=== PATIENT | female | born 1955 | race Caucasian/White ===

== ENCOUNTER → 2020-03-15 09:53 | Outpatient (BNVA) | payer OTHER, SELFPAY | PROVIDERS: PCP Internal Medicine; Visit Provider Hospitalist ==

== ENCOUNTER → 2021-10-16 08:58 | Outpatient (BNVA) | payer OTHER, SELFPAY | PROVIDERS: PCP Nurse Practitioner Gerontology; Visit Provider Hospitalist | DX: R94.31 Abnormal electrocardiogram [ECG] [EKG] (principal); R91.8 Other nonspecific abnormal finding of lung field; R06.00 Dyspnea, unspecified; J44.9 Chronic obstructive pulmonary disease, unspecified; D86.9 Sarcoidosis, unspecified; J45.909 Unspecified asthma, uncomplicated; Z79.899 Other long term (current) drug therapy | CPT/HCPCS: 93005 ==

== ENCOUNTER → 2022-03-13 11:01 | Outpatient (BNVA) | payer OTHER, SELFPAY | PROVIDERS: PCP Nurse Practitioner Gerontology; Visit Provider Hospitalist | DX: R94.31 Abnormal electrocardiogram [ECG] [EKG] (principal); R91.8 Other nonspecific abnormal finding of lung field; R06.00 Dyspnea, unspecified ==

== ENCOUNTER → 2022-05-22 11:07 | Outpatient (BNVA) | payer OTHER, SELFPAY | PROVIDERS: PCP Nurse Practitioner Gerontology; Visit Provider Hospitalist | DX: R94.31 Abnormal electrocardiogram [ECG] [EKG] (principal); R91.8 Other nonspecific abnormal finding of lung field; R06.00 Dyspnea, unspecified ==

== ENCOUNTER → 2022-08-28 11:25 | Outpatient (BNVA) | payer OTHER, SELFPAY | PROVIDERS: PCP Nurse Practitioner Gerontology; Visit Provider Hospitalist | DX: J44.9 Chronic obstructive pulmonary disease, unspecified (principal); D86.9 Sarcoidosis, unspecified; R91.8 Other nonspecific abnormal finding of lung field; R06.00 Dyspnea, unspecified; U09.9 Post COVID-19 condition, unspecified; G47.33 Obstructive sleep apnea (adult) (pediatric); Z23 Encounter for immunization | CPT/HCPCS: 90471; 90677 ==

== ENCOUNTER 2022-09-11 09:41 | Outpatient (RCR) | payer OTHER, SELFPAY ==
[2022-09-11 10:10] VITALS: BP 102/58; PULSE 58
--- NOTE | 2022-09-11 11:46 | MHC.PR.IN ---
[address] [phone] F: [phone] Pulmonary Rehabilitation Individual Treatment Plan Iris Millan is a 67 year old (F) who was referred to the Pulmonary Rehabilitation program by Campbell Amaya. This patient who has a primary diagnosis of Sarcoidosis will begin pulmonary rehabilitation with monitored exercise and education to optimize both physical and social performance, autonomy, increase strength and endurance, and control dypsnea. The following information was gathered from the patient: Smoking History Current smoking status: Never Smoked Years smoked: Last time smoked: Quit Date: Assistance with quitting needed: Past Medical History Medical History: Cardiac Disorders Hypertension Asthma Pneumonia Bronchitis Diabetes Mellitus Depression Anxiety Surgeries: Past Pulmonary Hospitalizations # of hospitalizations in the past year: N/A # of ER vists due to breathing troubles in the past year: N/A Current Pulmonary Medications Synthoid .5mg daily Pravistatin 40mg daily Ambien 10mg daily Cymbalta 20mg daily Clonazopan .75mg daily atrovent rescue PRN Propranolol 30 mg daily Norvasc 7.5 mg daily protonix 40 mg dialy metformin 500mg daily Allergy History Allergies: Demerol Current Oxygen Use Supplemental Oxygen Device Used: Liter flow: How often: N/A Pulmonary History Cough: Yes Sputum: No: Dry cough Sleep device: Other pulmonary devices: Peak flow meter: Yes: Pt taught peek flow Nebulizer: Yes: xopenex Suction: No Ventilator: No Secretion clearance: PEP: Influenza vaccine: Yes Pneumonia vaccine: Yes Patient Questionaire Scores MRC Dyspnea Scale (mRC): 2 CAT Score: PHQ-9 Score: 5 Pulmonary Function Test and Vital Signs Pulmonary Function Test Date of PFT FVC Actual % FVC Predicted % FEV1 Actual % FEV1 Predicted % FEV1/FVC Actual % FEV1/FVC Predicted % DLCO Vital Signs Heart Rate 58 Blood Pressure 102/58 SpO2 97% Respiratory Rate 16-18 shallow breaths Six Minute Walk Test Supplemental Oxygen O2 L/min: RA FiO2: Resting Vitals SpO2: 97% BP: 102/58mmHg HR: 68 bpm Total Distance 1,320 Number/ Time of Rests (sec) 0 JIMMY 3 METS 2.74 SpO2 95 HR (bpm) 84 MPH 2.54 Meters/Minute 396 Post-walk Vitals SpO2: 95 BP: 98/68 HR: 84 Performance Observations Pt walked walked a moderate pace, unassisted for 6 minutes. Pt denies any dizziness/pain/fatigue. RPD 3 Pulmonary Rehabilitation Plan Topic Problem Goal Plan Comment Education Knowledge deficit of disease self management strategies Ineffective control of dyspnea Verbalize adequate disease self-management skills Effective control of dyspnea Disease overview Panic Control Pt educated on diaphragmatic breathing techniques and pursed lip breathing. Hypoxia N/A, no s/s of hypoxemia Pt oxygenation is sufficient at this time. Psychosocial Panic Verbalizes improved psychosocial coping strategies & mechanisms Benefits of exercise Coping techniques On medications currently Pt states her anxiety and depression is minimal at this time. Uses current medications appropriately. Will focus on techniques coping with panic when she becomes short of breath. Activities of Daily Living Fear of severe dyspnea ADL management and control of dyspnea ADL performance with pacing and pursed lip breathing Educate on pursed lip breathing and pacing with stairs and activity Pt will receive continuous education and coaching on respiratory medication use. Spacer teaching/use, and breathing techniques. Nutrition & Weight Management Overweight Lose weight during program Education classes Education re ongoing weight monitoring Pt education on Dash diet. Handouts given, recipes , monitoring portion control Tobacco Managment NA Pt has never smoked Medication N/A, pt reports compliance w/ prescribed medications Adherence to prescribed medications Importance of medication compliance Medications purpose Prescribed medications Pt does not use symbicort at this time due to frequent issues with thrush. Pt instructed to gargle with peroxide after use, and will try again. Goal is to progress towards using maintenance inhaler 100% Inhaled Medication Purpose, side effects and technique needs review Correct technique/timing and care of inhaled medications Demo of MDI with spacer device MDI with spacer device Nebulizer Spacer given with teaching. Ongoing teaching with demonstration throughout program. Secretion Management N/A, pt able to self manage secretions Patient demonstrates effective cough and airway clearance Patient demonstrates effective cough and airway clearance PT has persistent dry cough. States her cough is not productive, but dry due to swelling of upper airways. Exercise & Fitness Pulmonary Rehab 2-3x/week Weight or resistance training 2-3x/week Aerobic Exercise: 30-60mins x 9 weeks Review how to measure and monitor dyspnea level Review exercise safety guidelines Review frequency and duration of exercise JIMMY RPD 3-4/10 PT currently does weight training 2X weekly at outside gym with a vocational trainer. Our focus will be aerobic exercise, to work on breathing and habits during periods of SOB UBE L1.3 5 min RPD 2 mets 2.3 Recumbent bike L1.0/P19 RPD 1 mets 2.0 Treadmill L2.5 Grade 1 RPD 3 Diabetes Management Does patient have DM?: Yes Diabetes Type: Current Blood Glucose Level: Current A1C Level: Self Check: Yes Patient's Goals and Concerns Her biggest goal is to learn breathing techniques and breath through exercise. PT states she tends to breath shallow breaths and when sob she will start to panic and experience lightheadedness.. Appraisal Specialist Review I have reviewed the outcome assessment, treatment plan, goals, and problem list. The treatment plan and goals support the patient's needs and abilities, and thereby recommend that the exercise plan be completed as documented. Special precautions or modifications to the treatment plan include:
[2022-09-17 11:30] VITALS: BP 112/62; BP 128/70
--- NOTE | 2022-10-09 10:10 | MHC.PR.DC ---
[address] [phone] F: [phone] Pulmonary Rehabilitation Discharge Iris Millan is a 67 year old (F) who was referred to the Pulmonary Rehabilitation program by Campbell Amaya. This patient who has a primary diagnosis of Sarcoidosis has completed 2 sessions of the pulmonary rehabilitation program with monitored exercise and education to optimize both physical and social performance, autonomy, increase strength and endurance, and control dypsnea. They were evaluated on . Discharge summary and tests are below. Initial MRC Score: 2 Discharge MRC Score: Six Minute Walk Test Initial 6MWT Discharge 6MWT Supplemental Oxygen O2 L/min: RA FiO2: O2 L/min: FiO2: Resting Vitals SpO2: 97% BP: 102/58mmHg HR: 68 bpm SpO2: % BP: mmHg HR: bpm Total Distance (ft) 1,320 Number/ Time of Rests (sec) 0 JIMMY 3 Walk Vitals SpO2: 95 HR: 84 SpO2: HR: Post-Walk Vitals SpO2: 95 BP: 98/68 HR: 84 SpO2: BP: HR: Performance Observations Pt walked walked a moderate pace, unassisted for 6 minutes. Pt denies any dizziness/pain/fatigue. RPD 3 Cannot complete. Pt is not interested in rehab at this time. She exercises at home. Exercise Assessment on : Pre-exercise Post-exercise SpO2 Heart Rate JIMMY METS Exercise Assessment on : Pre-exercise Post-exercise SpO2 Heart Rate JIMMY METS Exercise Assessment on : Pre-exercise Post-exercise SpO2 Heart Rate JIMMY METS Topic Education/Progress Progress Comments Education Hypoxia Current oxygen Use: RA Psychosocial PHQ-9 Score: 5 Activities of Daily Living Nutrition and Weight Managment Current weight: 204 BMI: Weight change: Tobacco Stages of Change: Tobacco Use: Cigerettes/Day: Any nicotine replacement: Any cessation medication: Smoking quit date: Smokeless tobacco use and amount: Medications Inhaled Medications Patient verbalizes correct technique of: MDI: DPI: SMI: NEBULIZER: Secretion Management Patient provides adequate return demonstration of: Controlled cough: Thomas cough: Acapella/ PEP Device: CPT: Sputum management: Exercise and Fitness Aerobic Exercise Frequency: Target heart range: Heart rate range: SpO2 Range: JIMMY RPD: Time (minutes): O2 use with exercise: Current HEP: Discharge Assessment: Discharge Reason: PT is not interested in rehab at this time. Pt states she does exercise at home, and this facility is quite far. Other rehab facilities were discussed, but she is not interested. Discharge Recommendation: :
== END 2022-10-09 10:10 | disposition home or self-care (01) ==
LOC: HO.PR 09:41
PROVIDERS: PCP Nurse Practitioner Gerontology; Visit Provider Hospitalist
DX: J44.9 Chronic obstructive pulmonary disease, unspecified (principal); D86.9 Sarcoidosis, unspecified
CPT/HCPCS: 94625

== ENCOUNTER → 2022-10-08 14:23 | Outpatient (REF) | payer OTHER, SELFPAY | LOC: HO.SL 14:23 | PROVIDERS: PCP Nurse Practitioner Gerontology; Visit Provider Hospitalist | DX: D86.9 Sarcoidosis, unspecified (principal); J44.9 Chronic obstructive pulmonary disease, unspecified | CPT/HCPCS: 94010; 94727; 94729 ==

== ENCOUNTER 2022-11-04 13:37 | Outpatient (AMB) | payer OTHER, SELFPAY ==
--- NOTE | 2022-11-04 13:42 | MHC.OFFVIS ---
Intake Vital Signs 11/04/22 13:43 Height 5 ft 6 in Weight 199 lb BMI 32.1 Pulse 69 Pulse Source Pulse Oximeter Pulse Oximetry (%) 94 Oxygen Delivery Method Room Air Intake Visit Reasons: persistent cough and wheeze Market Research Specialist Required: No Allergies demerol Allergy (Unknown, Uncoded 11/04/22 13:44) hives duraprep Allergy (Unknown, Uncoded 11/04/22 13:44) /welts HPI HPI Comments History of Present Illness Details The patient is a 67 year woman with a known history of moderate persistent asthma, sarcoidosis and pulmonary nodules. The patient also has allergies and currently seen an stonemason apprentice. She was offered allergy shots but she does not want to start them at this time. She continues uses Symbicort 2 puffs twice a day. She also uses very her rescue inhaler. Unfortunately she has tried albuterol as a short-acting beta agonist cell resulting significant palpitations and tremors. For that reason we have switched her over to Xopenex HFA and also the nebulized solution that she has had to tolerate much better. She doesn't have any adverse effects when she uses Xopenex as opposed to the side effects that she gets some abuse or. Therefore we will resend her Xopenex to the pharmacy. The patient is not able to use albuterol. We did review her CT scan of the chest last done back in [address] [facility]. She does have multiple pulmonary nodules largest measuring 8 mm. She hasn't had imaging now in more than 2 years. The patient needs to have a CT scan to reassess nodular densities. We will do that at [facility] [place]. In addition to that we did review her blood work demonstrating elevated Paul level that may be a sign of active sarcoid. So therefore will recheck the level at this time. Otherwise the patient is without any other complaints 09/17/2019 the patient is here for pulmonary follow-up visit. Overall she is doing okay. She continues to Symbicort with good effect. Does not have any significant wheezing, although, she does have a dry cough. Moderate severity. She denies any significant shortness of breath. She does have the Xopenex nebulized solution but the HFA was not approved. She is concerned because she does not have a rescue inhaler available. I will send her Atrovent HFA inhaler as rescue. We also talked about her blood work demonstrating the elevated angiotensin converting enzyme level of 70. She has had this tested before and was always normal. Therefore, along with her pulmonary nodules lymphadenopathy and her previous CT scan and her ongoing symptoms will plan to repeat the CT scan at this time. 03/15/2020 the patient is here for pulmonary follow-up visit. She continues on her respiratory medications. Does have cough intermittently and also some shortness of breath. Pogi-mt-sjwlxmld severity. Does improve with respiratory medications. Again, we reviewed her CT scan of the chest from 2017 demonstrating pulmonary nodules. This point we need to repeat the CT scan to assess her symptoms in addition to assess the size of pulmonary nodules. 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 10/16/2021 the patient is here for pulmonary follow-up visit. She is describing worsening dyspnea on exertion. She has noticed did the last several weeks. 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 She has been doing well and tolerating her physical exercise well until recently. She started developing some heaviness and chest pressure sensations with activity as well as shortness of breath. Moderate severity. She has not been able to keep up with the same level of exercise. She does have a rescue inhaler she does use it with partial response. During the office visit we did have her undergo a 6 minute walk test. The patient's heart rate and pulse ox were within normal limits. However she did complaint of chest heaviness and pressure 5/10. Therefore we did do an EKG. She did have T-wave inversions in the inferior leads and also poor R-wave progression in the anterior septal leads. However we do not have a previous EKG to compare. She states that she did have an EKG at her primary care doctor's office. Will go ahead and fax over this reports that they can compare. In the meantime I will request a cardiology consultation and a referral will be made for urgent visit. In the meantime the patient is going to stop with exercise routine until she is evaluated by Cardiology. Will further maximize respiratory therapy by adding Symbicort. She can also try a small short course of prednisone to see if this also relieves her symptoms if for some reason is related to her asthma or sarcoid. The patient will also undergo blood work and chest x-ray and she can do that at [facility] [place] where she is employed. 01/08/2022 the patient is here for a pulmonary follow-up visit. She continues to complaint of dyspnea on exertion. Last week her symptoms became significantly worse. The patient did take some prednisone and she did have improvement of her symptoms. Now she has a lingering cough. The cough is nonproductive in nature. Is moderate severity. If the PICC please worsen at nighttime. She is currently not taking any medications for the cough. It is a little better today. Denies any wheezing or chest tightness. Denies any significant coughing. She did follow-up with cardiology. They noted the abnormal EKG. She had additional testing including no clear testing. now she is awaiting a left heart catheterization. The question of cardiac sarcoid did come up. At this time the patient will rule out any coronary artery disease. Also assess valvular disease. If the workup is negative then consider cardiac workup for cardiac sarcoidosis. Currently she continues use her respiratory therapy with partial response. 03/13/2022 the patient is here for a pulmonary follow-up visit. The patient has been getting worse in the last week. She is developing a croupy cough in along with shortness of breath and chest tightness. The patient did follow-up with cardiology her and had a full cardiac workup including cardiac catheterization. She was told that everything is fine from a cardiac workup and that most of her symptoms are pulmonary. In the meantime the patient developed this respiratory illness. Will go ahead and treated with antibiotics for what appears to be a bout of tracheobronchitis and will provide also with cough medication. If the patient is not better she will provide us with a sputum culture in order for further analyze the microbiology. I do believe that the patient will require repeat CT scan. Her last CT scan was bout two years ago demonstrating pulmonary nodules and along with airspace disease. The patient has a history sarcoidosis. Ultimately I do believe that to further address her cough appt bronchoscopy may be warranted to further address for endobronchial sarcoid also to assess her trachea for any evidence of tracheomalacia or any other etiologies for cough. 05/22/2022 the patient is here for pulmonary follow-up visit. She still complains of a cough. At this point the cough is nonproductive in nature. Although she does feel like she does have some chest congestion with difficult to expectorate. The coughing spells can be sporadic and be uncomfortable. Moderate severity. Her inhalers do not help. Her nebulizers more effective. Will try to minimize the use of prednisone. The patient does have chronic bronchitis with frequent exacerbations needing prednisone. Therefore she is a good candidate for Daliresp. Will go ahead and start a small dose of Daliresp and she is going to be mindful of her GI potential side effects. Hopeful that she can tolerated we can increase it to the therapeutic dose of 500 mcg. In the meantime okay and also provide her with hypertonic saline and an Acapella valve in order for her to be able to work on chest physical therapy. Again, if the patient continues to be symptomatic once the patient is able we can have her undergo bronchoscopy to further adjust the airways. The patient may have a component of sinus congestion. She should be using her nasal sprays and also consider nasal rinsing. The patient does have significant daytime drowsiness after having COVID. Likely chronic fatigue syndrome the patient unfortunately even after a full night's sleep still feels tired. Denies any symptoms or signs of obstructive sleep apnea. If the patient continues to be symptomatic with daytime drowsiness upon return and upon improvement of her chest physical therapy them with the consider using stimulants to try to improve her daytime wakefulness. 08/28/2022 the patient is here for a pulmonary follow-up visit. The patient still struggling with her breathing. Complains of significant dyspnea on exertion also daytime drowsiness. Her [place] score is elevated 12/24. She sleeps a lot during the daytime. The patient has not had any recent sleep studies. At this point based on her ongoing symptoms will go ahead and abscess. The patient also tried Daliresp to see if this would help with her breathing and exacerbations, but, her symptoms did not get any better and she had significant GI adverse effects to the point that she has to stop it immediately. The patient did not tolerate the therapy. The patient did have COVID in therefore long COVID is indeed in differential Peter for sleep study is negative we can consider stimulant therapy to help with her ongoing symptoms. The patient also has underlying sarcoidosis history and pulmonary nodules. Will plan to repeat the CT scan of the chest to assess her pulmonary nodules in view of her ongoing symptoms. The patient should also undergo pulmonary function studies and consider pulmonary rehabilitation. 11/04/2022 the patient is here for pulmonary follow-up visit. The patient has been sick now for about 4 days. She was exposed to sick contact. Now she has occlude like cough. She has a hard time sleeping at nighttime. The cough is pretty significant. Also had some subjective fevers and chills. She tested negative for COVID. The patient also has had some increased wheezing and chest tightness. She has been using her rescue medication with good effect. Here in the office she does look ill appearing. The patient did have a swab done for RSV flowing COVID-19. Hopefully the results are negative patient will start also some prednisone she does have diabetes will do a low dose. Also started on some antibiotics and also cough suppressant. She we did also review her CT scan of the chest that she had back in August demonstrating hilar lymphadenopathy and pulmonary nodules like this is consistent with her sarcoidosis. Still because of pulmonary nodules she will need a repeat CT scan in a year's time. In addition to that she had pulmonary function studies before she was sick demonstrating normal lung capacity. 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 BERTHA (obstructive sleep apnea) Asthma-COPD overlap syndrome Bronchitis Dyspnea Pulmonary nodules Sarcoidosis Asthma Social History (Updated 10/16/21 @ 09:14 by Estee Perez Radha) Household Members: Spouse Patient Tobacco Use Status: Never used Tobacco Review of Systems Const Reports chills, Reports daytime sleepiness, Reports fatigue, Reports malaise and Denies night sweats ENT Denies change in voice, Denies lip swelling, Denies mouth pain, Reports nasal congestion, Reports nasal discharge and Denies tongue swelling Card Reports chest pain and Reports dyspnea on exertion Resp Denies change in phlegm color, Reports chest congestion, Reports cough, Denies hemoptysis, Denies pain on inspiration, Denies pain with cough, Reports dyspnea on exertion and Reports wheezing GI Denies abdominal pain Musc Denies no additional complaints Neuro Denies Neuro-related abnormal movements Psych Denies no additional complaints Endo Reports fatigue Manan/Lymph Denies easy bleeding and Denies lymphadenopathy Aller/Immun Denies lip swelling, Denies tongue swelling and Reports wheezing Physical Exam Vital Signs: Last Vital Signs Pulse 69 11/04/22 13:43 Pulse Ox 94 11/04/22 13:43 Oxygen Delivery Method Room Air 11/04/22 13:43 BMI result Body Mass Index 32.1 Const General: alert HEENT General nose exam: Abnormal external nose present and Nasal discharge present Eyes Pupils: Equal, round and reactive pupils present Neck Neck: Yes normal visual inspection, Yes full ROM and Yes no lymphadenopathy Chest Chest palpation & inspection: normal inspection of the chest Resp Effort & Inspection: normal respiratory effort and Actively coughing (croup) Quality: actively coughing Auscultation: no crackles, no rales, no rhonchi, wheezes and diminished lung sounds Cardio Rate: regular rate Rhythm: regular rhythm Heart sounds: S1 normal heart sound present and S2 normal heart sound present GI Palpation (GI): Soft to palpation and nontender Auscultation: normal bowel sounds General: Yes no CVA tenderness Back/Spine/Pelvis Back: no CVA tenderness Skin General skin exam: rashes and/or lesions noted Neuro Cranial nerves: Yes Equal, round and reactive pupils present Assessment & Plan Assessment & Plan (1) Asthma-COPD overlap syndrome: Code(s): J44.9 - Chronic obstructive pulmonary disease, unspecified (2) Sarcoidosis: Code(s): D86.9 - Sarcoidosis, unspecified (3) Pulmonary nodules: Comment: numerous pulmonary nodules with on going symptoms. Code(s): R91.8 - Other nonspecific abnormal finding of lung field (4) Dyspnea: Code(s): R06.00 - Dyspnea, unspecified Qualifiers: Dyspnea type: dyspnea on exertion Qualified Code(s): R06.09 - Other forms of dyspnea (5) BERTHA (obstructive sleep apnea): Code(s): G47.33 - Obstructive sleep apnea (adult) (pediatric) (6) Tracheobronchitis: Code(s): J40 - Bronchitis, not specified as acute or chronic Plan start Prednisone start Doxycycline''cough syrup continue nebulier with albuterol hypertonic saline 3% followed by [facility] for CPT continue short-acting beta agonist as needed Codeine as needed Benzonate follow-up in 2-3 months Orders: Orders SARS-CoV2/FLU/RSV Today J05.0 - Acute obstructive laryngitis [croup] Medications: New doxycycline hyclate 100 mg PO BID 10 days 20 caps 0RF prednisone PO daily; Take 2 tabs daily x 7 days, then 1 tab daily x 7 days 14 days 21 tabs 0RF codeine-guaifenesin 10-100 mg/5 mL 10 mL PO Q6H 10 days PRN 300 mL 0RF cough Changed From levalbuterol HCl 1.25 mg (3 mL) inhalation BID 540 mL 0RF J44.9 - Chronic obstructive pulmonary disease, unspecified To levalbuterol HCl 1.25 mg (3 mL) inhalation BID 30 days 180 mL 11RF J44.9 - Chronic obstructive pulmonary disease, unspecified Coding Level of Care Code Est Pt Level 4 (82135) Diagnoses Asthma-COPD overlap syndrome J44.9 Sarcoidosis D86.9 Pulmonary nodules R91.8 Dyspnea on exertion R06.09 Dyspnea type: dyspnea on exertion BERTHA (obstructive sleep apnea) G47.33 Tracheobronchitis J40 Time Spent (min) 18
[2022-11-04 13:43] VITALS: PULSE 69; O2SAT 94; BMI 32.1
== END 2022-11-04 14:13 | disposition home or self-care (01) ==
PROVIDERS: PCP Nurse Practitioner Gerontology; Visit Provider Hospitalist
DX: J44.9 Chronic obstructive pulmonary disease, unspecified (principal); D86.9 Sarcoidosis, unspecified; R91.8 Other nonspecific abnormal finding of lung field; R06.09 Other forms of dyspnea; G47.33 Obstructive sleep apnea (adult) (pediatric); J40 Bronchitis, not specified as acute or chronic
CPT/HCPCS: 99214

== ENCOUNTER → 2022-11-04 13:37 | Outpatient (BNVA) | payer OTHER, SELFPAY | PROVIDERS: PCP Nurse Practitioner Gerontology; Visit Provider Hospitalist ==

== ENCOUNTER 2022-11-04 14:09 | Outpatient (REF) | payer OTHER, SELFPAY ==
[2022-11-04 15:32] LABS: Influenza A PCR NEGATIVE (Negative); Influenza B PCR NEGATIVE (Negative); Resp Syncy Virus RNA Qual PCR NEGATIVE (Negative); SARS COV2 PCR INHOUSE NEGATIVE (Negative)
== END 2022-11-04 14:10 | disposition home or self-care (01) ==
LOC: HO.LNP 14:09
PROVIDERS: Visit Provider Hospitalist
DX: J05.0 Acute obstructive laryngitis [croup] (principal); Z20.828 Contact with and (suspected) exposure to other viral communicable diseases
CPT/HCPCS: 0241U

== ENCOUNTER 2022-12-12 13:05 | Outpatient (AMB) | payer OTHER, SELFPAY ==
[2022-12-12 13:12] VITALS: BP 120/70; PULSE 82; O2SAT 97; BMI 32.7
--- NOTE | 2022-12-12 13:12 | A.OFFVIS_ITS ---
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 The patient also has allergies and currently seen an industrial economist. She was offered allergy shots but she does not want to start them at this time. She continues uses Symbicort 2 puffs twice a day. She also uses very her rescue inhaler. Unfortunately she has tried albuterol as a short-acting beta agonist cell resulting significant palpitations and tremors. For that reason we have switched her over to Xopenex HFA and also the nebulized solution that she has had to tolerate much better. She doesn't have any adverse effects when she uses Xopenex as opposed to the side effects that she gets some abuse or. Therefore we will resend her Xopenex to the pharmacy. The patient is not able to use albuterol. We did review her CT scan of the chest last done back in 2017 at [facility]. She does have multiple pulmonary nodules largest measuring 8 mm. She hasn't had imaging now in more than 2 years. The patient needs to have a CT scan to reassess nodular densities. We will do that at [facility]. In addition to that we did review her blood work demonstrating elevated Paul level that may be a sign of active sarcoid. So therefore will recheck the level at this time. Otherwise the patient is without any other complaints 09/17/2019 the patient is here for pulmonary follow-up visit. Overall she is doing okay. She continues to Symbicort with good effect. Does not have any significant wheezing, although, she does have a dry cough. Moderate severity. She denies any significant shortness of breath. She does have the Xopenex nebulized solution but the HFA was not approved. She is concerned because she does not have a rescue inhaler available. I will send her Atrovent HFA inhaler as rescue. We also talked about her blood work demonstrating the elevated angiotensin converting enzyme level of 70. She has had this tested before and was always normal. Therefore, along with her pulmonary nodules lymphadenopathy and her previous CT scan and her ongoing symptoms will plan to repeat the CT scan at this time. 03/15/2020 the patient is here for pulmonary follow-up visit. She continues on her respiratory medications. Does have cough intermittently and also some shortness of breath. Wldi-[id number] severity. Does improve with respiratory medications. Again, we reviewed her CT scan of the chest from 2017 demonstrating pulmonary nodules. This point we need to repeat the CT scan to assess her symptoms in addition to assess the size of pulmonary nodules. 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 10/16/2021 the patient is here for pulmonary follow-up visit. She is describing worsening dyspnea on exertion. She has noticed did the last several weeks. 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 She has been doing well and tolerating her physical exercise well until recently. She started developing some heaviness and chest pressure sensations with activity as well as shortness of breath. Moderate severity. She has not been able to keep up with the same level of exercise. She does have a rescue inhaler she does use it with partial response. During the office visit we did have her undergo a 6 minute walk test. The patient's heart rate and pulse ox were within normal limits. However she did complaint of chest heavi ness and pressure 5/10. Therefore we did do an EKG. She did have T-wave inversions in the inferior leads and also poor R-wave progression in the anterior septal leads. However we do not have a previous EKG to compare. She states that she did have an EKG at her primary care doctor's office. Will go ahead and fax over this reports that they can compare. In the meantime I will request a cardiology consultation and a referral will be made for urgent visit. In the meantime the patient is going to stop with exercise routine until she is evaluated by Cardiology. Will further maximize respiratory therapy by adding Symbicort. She can also try a small short course of prednisone to see if this also relieves her symptoms if for some reason is related to her asthma or sarcoid. The patient will also undergo blood work and chest x-ray and she can do that at [facility] where she is employed. 01/08/2022 the patient is here for a pulmonary follow-up visit. She continues to complaint of dyspnea on exertion. Last week her symptoms became significantly worse. The patient did take some prednisone and she did have improvement of her symptoms. Now she has a lingering cough. The cough is nonproductive in nature. Is moderate severity. If the PICC please worsen at nighttime. She is currently not taking any medications for the cough. It is a little better today. Denies any wheezing or chest tightness. Denies any significant coughing. She did follow-up with cardiology. They noted the abnormal EKG. She had additional testing including no clear testing. now she is awaiting a left heart catheterization. The question of cardiac sarcoid did come up. At this time the patient will rule out any coronary artery disease. Also assess valvular disease. If the workup is negative then consider cardiac workup for cardiac sarcoidosis. Currently she continues use her respiratory therapy with partial response. 03/13/2022 the patient is here for a pulmonary follow-up visit. The patient has been getting worse in the last week. She is developing a croupy cough in along with shortness of breath and chest tightness. The patient did follow-up with cardiology her and had a full cardiac workup including cardiac catheterization. She was told that everything is fine from a cardiac workup and that most of her symptoms are pulmonary. In the meantime the patient developed this respiratory illness. Will go ahead and treated with antibiotics for what appears to be a bout of tracheobronchitis and will provide also with cough medication. If the patient is not better she will provide us with a sputum culture in order for further analyze the microbiology. I do believe that the patient will require repeat CT scan. Her last CT scan was bout two years ago demonstrating pulmonary nodules and along with airspace disease. The patient has a history sarcoidosis. Ultimately I do believe that to further address her cough appt bronchoscopy may be warranted to further address for endobronchial sarcoid also to assess her trachea for any evidence of tracheomalacia or any other etiologies for cough. 05/22/2022 the patient is here for pulmonary follow-up visit. She still complains of a cough. At this point the cough is nonproductive in nature. Although she does feel like she does have some chest congestion with difficult to expectorate. The coughing spells can be sporadic and be uncomfortable. Moderate severity. Her inhalers do not help. Her nebulizers more effective. Will try to minimize the use of prednisone. The patient does have chronic bronchitis with frequent exacerbations needing prednisone. Therefore she is a good candidate for Daliresp. Will go ahead and start a small dose of Daliresp and she is going to be mindful of her GI potential side effects. Hopeful that she can tolerated we can increase it to the therapeutic dose of 500 mcg. In the meantime okay and also provide her with hypertonic saline and an Acapella valve in order for her to be able to work on chest physical therapy. Again, if the patient continues to be symptomatic once the patient is able we can have her undergo bronchoscopy to further adjust the airways. The patient may have a component of sinus congestion. She should be using her nasal sprays and also consider nasal rinsing. The patient does have significant daytime drowsiness after having COVID. Likely chronic fatigue syndrome the patient unfortunately even after a full night's sleep still feels tired. Denies any symptoms or signs of obstructive sleep apnea. If the patient continues to be symptomatic with daytime drowsiness upon return and upon improvement of her chest physical therapy them with the consider using stimulants to try to improve her daytime wakefulness. 08/28/2022 the patient is here for a pulmonary follow-up visit. The patient still struggling with her breathing. Complains of significant dyspnea on exertion also daytime drowsiness. Her [place] score is elevated 12/24. She sleeps a lot during the daytime. The patient has not had any recent sleep studies. At this point based on her ongoing symptoms will go ahead and abscess. The patient also tried Daliresp to see if this would help with her breathing and exacerbations, but, her symptoms did not get any better and she had significant GI adverse effects to the point that she has to stop it immediately. The patient did not tolerate the therapy. The patient did have COVID in therefore long COVID is indeed in differential Peter for sleep study is negative we can consider stimulant therapy to help with her ongoing symptoms. The patient also has underlying sarcoidosis history and pulmonary nodules. Will plan to repeat the CT scan of the chest to assess her pulmonary nodules in view of her ongoing symptoms. The patient should also undergo pulmonary function studies and consider pulmonary rehabilitation. 11/04/2022 the patient is here for pulmonary follow-up visit. The patient has been sick now for about 4 days. She was exposed to sick contact. Now she has occlude like cough. She has a hard time sleeping at nighttime. The cough is pretty significant. Also had some subjective fevers and chills. She tested negative for COVID. The patient also has had some increased wheezing and chest tightness. She has been using her rescue medication with good effect. Here in the office she does look ill appearing. The patient did have a swab done for RSV flowing COVID-19. Hopefully the results are negative patient will start also some prednisone she does have diabetes will do a low dose. Also started on some antibiotics and also cough suppressant. She we did also review her CT scan of the chest that she had back in August demonstrating hilar lymphadenopathy and pulmonary nodules like this is consistent with her sarcoidosis. Still because of pulmonary nodules she will need a repeat CT scan in a year's time. In addition to that she had pulmonary function studies before she was sick demonstrating normal lung capacity. 12/12/2022 the patient is here for a pulmonary follow-up visit. The patient is feeling little bit better. He still complains of a cough. Appears to be an upper airway cough syndrome. Likely from postnasal drip. She does have some sinus congestion. She just completed 2 courses of prednisone antibiotics for the ongoing lower respiratory infectious process. Seems to be doing better this time overall. We did review again her CT scan from [facility] from the summer of 2022 demonstrating stable changes. Patient also have a small hiatal hernia which may be contributing to the cough. Did talk about potentially consider bronchoscopy if the patient is no better. She is going to continue therapies for her nasal congestion and cough will continue with the current respiratory therapy. If she does not seen improvement was it worsens she will call will schedule bronchoscopy. Also on exam she does have a murmur. The patient has had a cardiac workup including cardiac cath and echo stress but I do not see an echocardiogram to assess valvular disease. 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 BERTHA (obstructive sleep apnea) Asthma-COPD overlap syndrome Bronchitis Dyspnea Pulmonary nodules Sarcoidosis Asthma Social History (Updated 10/16/21 @ 09:14 by EDUARDO Bernal) Household Members: Spouse Patient Tobacco Use Status: Never used Tobacco Review of Systems Const Reports chills, Reports daytime sleepiness, Reports fatigue, Reports malaise and Denies night sweats ENT Denies change in voice, Denies lip swelling, Denies mouth pain, Reports nasal congestion, Reports nasal discharge and Denies tongue swelling Card Denies chest pain and Reports dyspnea on exertion Resp Denies change in phlegm color, Denies chest congestion, Reports cough, Denies hemoptysis, Denies pain on inspiration, Denies pain with cough, Reports dyspnea on exertion and Denies wheezing GI Denies abdominal pain Musc Denies no additional complaints Neuro Denies Neuro-related abnormal movements Psych Denies no additional complaints Endo Reports fatigue Manan/Lymph Denies easy bleeding and Denies lymphadenopathy Aller/Immun Denies lip swelling, Denies tongue swelling and Denies wheezing Physical Exam Vital Signs: Last Vital Signs Pulse 82 12/12/22 13:12 BP 120/70 12/12/22 13:12 Pulse Ox 97 12/12/22 13:12 Oxygen Delivery Method Room Air 12/12/22 13:12 BMI result Body Mass Index 32.7 Const General: alert HEENT General nose exam: Abnormal external nose present and Nasal discharge present Eyes Pupils: Equal, round and reactive pupils present Neck Neck: Yes normal visual inspection, Yes full ROM and Yes no lymphadenopathy Chest Chest palpation & inspection: normal inspection of the chest Resp Effort & Inspection: normal respiratory effort and Actively coughing (croup) Quality: actively coughing Auscultation: no crackles, no rales, no rhonchi, no wheezes and diminished lung sounds Cardio Rate: regular rate Rhythm: regular rhythm Heart sounds: S1 normal heart sound present and S2 normal heart sound present GI Palpation (GI): Soft to palpation and nontender Auscultation: normal bowel sounds General: Yes no CVA tenderness Back/Spine/Pelvis Back: no CVA tenderness Skin General skin exam: rashes and/or lesions noted Neuro Cranial nerves: Yes Equal, round and reactive pupils present Assessment & Plan Assessment & Plan (1) Sarcoidosis: Code(s): D86.9 - Sarcoidosis, unspecified (2) Pulmonary nodules: Comment: numerous pulmonary nodules with on going symptoms. Code(s): R91.8 - Other nonspecific abnormal finding of lung field (3) Dyspnea: Code(s): R06.00 - Dyspnea, unspecified Qualifiers: Dyspnea type: dyspnea on exertion Qualified Code(s): R06.09 - Other forms of dyspnea (4) BERTHA (obstructive sleep apnea): Code(s): G47.33 - Obstructive sleep apnea (adult) (pediatric) (5) Asthma: Code(s): J45.909 - Unspecified asthma, uncomplicated Qualifiers: Asthma severity: moderate Asthma persistence: persistent Asthma complication type: uncomplicated Qualified Code(s): J45.40 - Moderate persistent asthma, uncomplicated (6) Murmur: Code(s): R01.1 - Cardiac murmur, unspecified Plan continue nebulier with albuterol Xopenx BID continue short-acting beta agonist as needed start fluticasone nasal spray start neti bottle PM Benzonate as needed ECHO Consider bronchoscopy if no better follow-up in 4-6 months Orders: Orders CA echo transthoracic complete Today R01.1 - Cardiac murmur, unspecified Medications: New benzonatate 200 mg PO BID 30 days PRN 30 caps 5RF cough benzonatate 200 mg PO BID PRN 30 caps 5RF cough 30 days Refilled levalbuterol HCl 1.25 mg (3 mL) inhalation BID 180 mL 11RF 30 days J44.9 - Chronic obstructive pulmonary disease, unspecified Coding Level of Care Code Est Pt Level 4 (10340) Diagnoses Sarcoidosis D86.9 Pulmonary nodules R91.8 Dyspnea on exertion R06.09 Dyspnea type: dyspnea on exertion BERTHA (obstructive sleep apnea) G47.33 Moderate persistent asthma without complication J45.40 Asthma severity: moderate Asthma persistence: persistent Asthma complication type: uncomplicated Murmur R01.1 Time Spent (min) 17
== END 2022-12-12 13:34 | disposition home or self-care (01) ==
PROVIDERS: PCP Nurse Practitioner Gerontology; Visit Provider Hospitalist
DX: D86.9 Sarcoidosis, unspecified (principal); R91.8 Other nonspecific abnormal finding of lung field; R06.09 Other forms of dyspnea; G47.33 Obstructive sleep apnea (adult) (pediatric); J45.40 Moderate persistent asthma, uncomplicated; R01.1 Cardiac murmur, unspecified
CPT/HCPCS: 99214

== ENCOUNTER → 2022-12-12 13:05 | Outpatient (BNVA) | payer OTHER, SELFPAY | PROVIDERS: PCP Nurse Practitioner Gerontology; Visit Provider Hospitalist | DX: R94.31 Abnormal electrocardiogram [ECG] [EKG] (principal); R91.8 Other nonspecific abnormal finding of lung field; R06.00 Dyspnea, unspecified; J44.9 Chronic obstructive pulmonary disease, unspecified; D86.9 Sarcoidosis, unspecified; J45.909 Unspecified asthma, uncomplicated ==

== ENCOUNTER → 2023-01-07 15:38 | Outpatient (REF) | payer OTHER, SELFPAY ==
--- NOTE | 2023-01-07 15:40 | CA_ITS ---
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 The calculated ejection fraction is 66% by biplane method. - There is severe septal asymmetric hypertrophy. - There is moderately increased left ventricular wall thickness. - Aortic valve sclerosis, but no significant stenosis. - There is mild dilatation of the ascending aorta measuring 4.00 cm. Findings Left Ventricle Normal left ventricular cavity size. There is moderately increased left ventricular wall thickness. The left ventricular systolic function is normal. The calculated ejection fraction is 66% by biplane method. There is no evidence of regional wall motion abnormalities. Evidence suggests grade I (mild) diastolic dysfunction. There is severe septal asymmetric hypertrophy. Right Ventricle Normal right ventricular cavity size and systolic function. Atria The left atrium is mildly dilated. The right atrium is normal in size. Aortic Valve There is mild calcification of the aortic valve. There is trace (trivial) aortic valve regurgitation. No significant aortic stenosis. Mitral Valve There is mild anterior mitral leaflet thickening. There is mild mitral annular calcification. There is no mitral valve regurgitation. There is no mitral valve stenosis. Pulmonic Valve The pulmonic valve is likely normal. Tricuspid Valve Normal tricuspid valve structure. There is trace tricuspid valve regurgitation. There is no evidence of pulmonary hypertension. Great Vessels There is mild dilatation of the ascending aorta measuring 4.00 cm. Venous The inferior vena cava is normal in size and collapses greater than 50% with inspiration. Pericardium/Pleural There is no evidence of pericardial effusion. Prior Study Comparison No prior study available for comparison. Measurements 2D Linear Measurements IVSd: 1.58 0.6-0.9/0.6-1.0 cm LVIDd: 3.31 3.9-5.3/4.2-5.9 cm LVIDd Index: 1.66 2.4-3.2/2.2-3.1 cm/m2 LVIDs: 2.24 2.0-3.6 cm LVPWd: 1.63 0.7-1.1 cm Ao Root: 3.50 2.1-3.5 cm LA Diam: 3.40 2.7-3.8/3.0-4.0 cm LAIDs Index: 1.71 1.5-2.3 cm/m2 LV Mass: 250.54 67-162/88-224 g LV Mass Index: 125.90 43-95/49-115 g/m2 LVOT Diam: 2.20 3.0+(-)1.3 cm 2D Systolic Function EF 4C: 63.30 >55% EF 2C: 66.60 >55% EF BiP: 65.60 >55% Mitral Valve MV Pk E: 0.36 MV PK A: 0.98 MV Decel Time: 215.00 E/A: 0.40 E'Lateral: 7.94 E'Medial: 4.24 E/E' Med: 8.50 E/E' Lat: 4.50 PHT: 63.00 MVA PHT: 3.49 Decel [place]: 1.67 Aortic Valve AoV Pk Bryan: 2.06 AoV Mn Bryan: 1.51 AoV VTI: 0.47 AoV Pk Grad: 17.00 Aov Mn Grad: 10.00 ARMANDO Cont.VTI: 2.79 LVOT LVOT Pk Bryan: 1.54 LVOT Mn Bryan: 1.08 LVOT VTI: 0.35 LVOT Pk Grad: 9.00 LVOT Mn Grad: 6.00 LVOT Diam: 2.20 LVOT Area: 3.80 Diastolic Function MV Pk E: 0.36 MV Pk A: 0.98 E/A: 0.40 E'Medial: 4.24 E/E' Med: 8.50 E' Laterial: 7.94 E/E' Lat: 4.50 Right Ventricle TAPSE (mm): 26.00 TVS' Bryan: 11.00 Tricuspid Valve TR Pk Bryan: 2.52 TR Pk Grad: 25.00 RA Press: 3.00 RVSP: 28.00 Great Vessels Aorta Ao Root-2D: 3.50 2.0-3.7 cm Ao Asc: 4.00 2.1-3.4 cm Pulmonary Valve PV Pk Bryan: 0.98 Peak PV Grad: 4.00 Updated in Other Vendor System with Status of Final Que Thibodeaux MD electronically signed on 01/08/2023 11:59:57 AM with status of Final
== END ==
LOC: HO.CARD 15:38
PROVIDERS: PCP Nurse Practitioner Gerontology; Visit Provider Hospitalist
DX: R01.1 Cardiac murmur, unspecified (principal)
CPT/HCPCS: 93306

== ENCOUNTER → 2023-01-07 15:40 | Outpatient (BNV) | payer OTHER, SELFPAY | PROVIDERS: PCP Nurse Practitioner Gerontology; Visit Provider Internal Medicine | DX: I42.9 Cardiomyopathy, unspecified (principal); I34.81 Nonrheumatic mitral (valve) annulus calcification | CPT/HCPCS: 93306 ==

== ENCOUNTER 2023-05-08 13:05 | Outpatient (AMB) | payer OTHER, SELFPAY ==
[2023-05-08 13:18] VITALS: PULSE 82; O2SAT 93; BMI 32.3
--- NOTE | 2023-05-08 13:18 | A.OFFVIS_ITS ---
Intake Vital Signs 05/08/23 13:18 Height 5 ft 6 in Weight 200 lb BMI 32.3 Pulse 82 Pulse Source Pulse Oximeter Pulse Oximetry (%) 93 Oxygen Delivery Method Room Air Intake Visit Reasons: Asthma Allergies demerol Allergy (Unknown, Uncoded 05/08/23 13:19) hives duraprep Allergy (Unknown, Uncoded 05/08/23 13:19) /welts HPI HPI Comments History of Present Illness Details The patient is a 67 year woman with a known history of moderate persistent asthma, sarcoidosis and pulmonary nodules. The patient also has allergies and currently seen an traffic supervisor. She was offered allergy shots but she does not want to start them at this time. She continues uses Symbicort 2 puffs twice a day. She also uses very her rescue inhaler. Unfortunately she has tried albuterol as a short-acting beta agonist cell resulting significant palpitations and tremors. For that reason we have switched her over to Xopenex HFA and also the nebulized solution that she has had to tolerate much better. She doesn't have any adverse effects when she uses Xopenex as opposed to the side effects that she gets some abuse or. Therefore we will resend her Xopenex to the pharmacy. The patient is not able to use albuterol. We did review her CT scan of the chest last done back in [address] [facility]. She does have multiple pulmonary nodules largest measuring 8 mm. She hasn't had imaging now in more than 2 years. The patient needs to have a CT scan to reassess nodular densities. We will do that at [facility]. In addition to that we did review her blood work demonstrating elevated Paul level that may be a sign of active sarcoid. So therefore will recheck the level at this time. Otherwise the patient is without any other complaints 03/13/2022 the patient is here for a pulm onary follow-up visit. The patient has been getting worse in the last week. She is developing a croupy cough in along with shortness of breath and chest tightness. The patient did follow-up with cardiology her and had a full cardiac workup including cardiac catheterization. She was told that everything is fine from a cardiac workup and that most of her symptoms are pulmonary. In the meantime the patient developed this respiratory illness. Will go ahead and treated with antibiotics for what appears to be a bout of tracheobronchitis and will provide also with cough medication. If the patient is not better she will provide us with a sputum culture in order for further analyze the microbiology. I do believe that the patient will require repeat CT scan. Her last CT scan was bout two years ago demonstrating pulmonary nodules and along with airspace disease. The patient has a history sarcoidosis. Ultimately I do believe that to further address her cough appt bronchoscopy may be warranted to further address for endobronchial sarcoid also to assess her trachea for any evidence of tracheomalacia or any other etiologies for cough. 05/22/2022 the patient is here for pulmon cabrera follow-up visit. She still complains of a cough. At this point the cough is nonproductive in nature. Although she does feel like she does have some chest congestion with difficult to expectorate. The coughing spells can be sporadic and be uncomfortable. Moderate severity. Her inhalers do not help. Her nebulizers more effective. Will try to minimize the use of prednisone. The patient does have chronic bronchitis with frequent exacerbations needing prednisone. Therefore she is a good candidate for Daliresp. Will go ahead and start a small dose of Daliresp and she is going to be mindful of her GI potential side effects. Hopeful that she can tolerated we can increase it to the therapeutic dose of 500 mcg. In the meantime okay and also provide her with hypertonic saline and an Acapella valve in order for her to be able to work on chest physical therapy. Again, if the patient continues to be symptomatic once the patient is able we can have her undergo bronchoscopy to further adjust the airways. The patient may have a component of sinus congestion. She should be using her nasal sprays and also consider nasal rinsing. The patient does have significant daytime drowsiness after having COVID. Likely chronic fatigue syndrome the patient unfortunately even after a full night's sleep still feels tired. Denies any symptoms or signs of obstructive sleep apnea. If the patient continues to be symptomatic with daytime drowsiness upon return and upon improvement of her chest physical therapy them with the consider using stimulants to try to improve her daytime wakefulness. 08/28/2022 the patient is here for a pulmo nary follow-up visit. The patient still struggling with her breathing. Complains of significant dyspnea on exertion also daytime drowsiness. Her Comfrey score is elevated 02/16. She sleeps a lot during the daytime. The patient has not had any recent sleep studies. At this point based on her ongoing symptoms will go ahead and abscess. The patient also tried Daliresp to see if this would help with her breathing and exacerbations, but, her symptoms did not get any better and she had significant GI adverse effects to the point that she has to stop it immediately. The patient did not tolerate the therapy. The patient did have COVID in therefore long COVID is indeed in differential Peter for sleep study is negative we can consider stimulant therapy to help with her ongoing symptoms. The patient also has underlying sarcoidosis history and pulmonary nodules. Will plan to repeat the CT scan of the chest to assess her pulmonary nodules in view of her ongoing symptoms. The patient should also undergo pulmonary function studies and consider pulmonary rehabilitation. 11/04/2022 the patient is here for pulmon cabrera follow-up visit. The patient has been sick now for about 4 days. She was exposed to sick contact. Now she has occlude like cough. She has a hard time sleeping at nighttime. The cough is pretty significant. Also had some subjective fevers and chills. She tested negative for COVID. The patient also has had some increased wheezing and chest tightness. She has been using her rescue medication with good effect. Here in the office she does look ill appearing. The patient did have a swab done for RSV flowing COVID-19. Hopefully the results are negative patient will start also some prednisone she does have diabetes will do a low dose. Also started on some antibiotics and also cough suppressant. She we did also review her CT scan of the chest that she had back in August demonstrating hilar lymphadenopathy and pulmonary nodules like this is consistent with her sarcoidosis. Still because of pulmonary nodules she will need a repeat CT scan in a year's time. In addition to that she had pulmonary function studies before she was sick demonstrating normal lung capacity. 12/12/2022 the patient is here for a pul monary follow-up visit. The patient is feeling little bit better. He still complains of a cough. Appears to be an upper airway cough syndrome. Likely from postnasal drip. She does have some sinus congestion. She just completed 2 courses of prednisone antibiotics for the ongoing lower respiratory infectious process. Seems to be doing better this time overall. We did review again her CT scan from [facility] from the summer demonstrating stable changes. Patient also have a small hiatal hernia which may be contributing to the cough. Did talk about potentially consider bronchoscopy if the patient is no better. She is going to continue therapies for her nasal congestion and cough will continue with the current respiratory therapy. If she does not seen improvement was it worsens she will call will schedule bronchoscopy. Also on exam she does have a murmur. The patient has had a cardiac workup including cardiac cath and echo stress but I do not see an echocardiogram to assess valvular disease. Therefore will request 1 at this time. 05/08/2023 the patient for pulmonary foll ow-up visit. She has feeling a lot better. Over the winter time she did get a viral syndrome likely RSV. Resulting in significant asthma flare-up. The patient initially was present medications without any significant improvement and then called again. We sent her higher dose of prednisone although she does have diabetes. She did tolerate the 60 mg of prednisone with a sugar increasing to about 250. Now the patient is back to baseline. She does have some dyspnea on exertion [id number] severity. We had done an echocardiogram back in December. I did competent to my note. Appears that she does have an asymmetrical left ventricular septal hypertrophy. It was described as severe. In addition to that she has not ectatic aorta measuring 4 cm in size. Patient does have some diastolic dysfunction because of the hypertrophy most likely. She also has significant murmur exam although no significant valvular disease appreciated on the echocardiogram. She had been seen by Cardiology in the past, pt evaluate Cardiology. Will send a referral again in order for her to be continued to be evaluated specially with significant cardiac hypertrophy. The patient also had a CT scan at [facility] back in August 2022 demonstrating multiple pulmonary nodules largest 1 measuring 7 mm in size. Will plan to repeat the CT scan again in August 2023 and she will follow-up after that. The patient also has significant lymphadenopathy. 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 BERTHA (obstructive sleep apnea) Asthma-COPD overlap syndrome Bronchitis Dyspnea Pulmonary nodules Sarcoidosis Asthma Social History (Updated 10/16/21 @ 09:14 by EDUARDO Bernal) Household Members: Spouse Patient Tobacco Use Status: Never used Tobacco Review of Systems Const Denies chills, Reports fatigue, Denies malaise and Denies night sweats ENT Denies change in voice, Denies lip swelling, Denies mouth pain, Reports nasal congestion, Reports nasal discharge and Denies tongue swelling Card Denies chest pain and Reports dyspnea on exertion Resp Denies change in phlegm color, Denies chest congestion, Reports cough, Denies hemoptysis, Denies pain on inspiration, Denies pain with cough, Reports dyspnea on exertion and Denies wheezing GI Denies abdominal pain Musc Denies no additional complaints Neuro Denies Neuro-related abnormal movements Psych Denies no additional complaints Endo Reports fatigue Manan/Lymph Denies easy bleeding and Denies lymphadenopathy Aller/Immun Denies lip swelling, Denies tongue swelling and Denies wheezing Physical Exam Vital Signs: Last Vital Signs Pulse 82 05/08/23 13:18 Pulse Ox 93 05/08/23 13:18 Oxygen Delivery Method Room Air 05/08/23 13:18 BMI result Body Mass Index 32.3 Const General: alert HEENT General nose exam: Abnormal external nose present and Nasal discharge present Eyes Pupils: Equal, round and reactive pupils present Neck Neck: Yes normal visual inspection, Yes full ROM and Yes no lymphadenopathy Chest Chest palpation & inspection: normal inspection of the chest Resp Effort & Inspection: normal respiratory effort and no cough (croup) Auscultation: no crackles, no rales, no rhonchi, no wheezes and diminished lung sounds Cardio Rate: regular rate Rhythm: regular rhythm Heart sounds: S1 normal heart sound present and S2 normal heart sound present GI Palpation (GI): Soft to palpation and nontender Auscultation: normal bowel sounds General: Yes no CVA tenderness Back/Spine/Pelvis Back: no CVA tenderness Skin General skin exam: rashes and/or lesions noted Neuro Cranial nerves: Yes Equal, round and reactive pupils present Results Reviewed Results Reviewed: [address] [address] Cardiology Report Signed Patient: Iris Millan MR#: [id number] : 1955 Acct:[id number] Age/Sex: 67 / F ADM Date: 01/07/23 Loc: HO.CARD Attending Dr: Campbell Amaya MD Ordering Physician: Campbell Amaya MD Date of Service: 01/07/23 Procedure(s): CA echo transthoracic complete Accession Number(s): cc: Campbell Amaya MD~ Transthoracic Echocardiogram Patient (Last, First, Middle): Iris Millan, Gender: Female Date of : 1955 Age: 67 Procedure Date: 01/07/2023 Procedure Type: Transthoracic Echocardiogram Location: OP Height: 167.64 cm Weight: 89.36 kg BSA: 1.99 m2 Heart Rate: bpm BP: 134 / 80 mmHg Law Reporter: Referring MD: Campbell Amaya MD Symptoms: R01.1 - Cardiac murmur, unspecified Study Quality: Adequate ECG Rhythm: Sinus Conclusions: - The left ventricular systolic function is normal. The calculated ejection fraction is 66% by biplane method. - There is severe septal asymmetric hypertrophy. - There is moderately increased left ventricular wall thickness. - Aortic valve sclerosis, but no significant stenosis. - There is mild dilatation of the ascending aorta measuring 4.00 cm. Findings Left Ventricle Normal left ventricular cavity size. There is moderately increased left ventricular wall thickness. The left ventricular systolic function is normal. The calculated ejection fraction is 66% by biplane method. There is no evidence of regional wall motion abnormalities. Evidence suggests grade I (mild) diastolic dysfunction. There is severe septal asymmetric hypertrophy. Right Ventricle Normal right ventricular cavity size and systolic function. Atria The left atrium is mildly dilated. The right atrium is normal in size. Aortic Valve There is mild calcification of the aortic valve. There is trace (trivial) aortic valve regurgitation. No significant aortic stenosis. Mitral Valve There is mild anterior mitral leaflet thickening. There is mild mitral annular calcification. There is no mitral valve regurgitation. There is no mitral valve stenosis. Pulmonic Valve The pulmonic valve is likely normal. Tricuspid Valve Normal tricuspid valve structure. There is trace tricuspid valve regurgitation. There is no evidence of pulmonary hypertension. Great Vessels There is mild dilatation of the ascending aorta measuring 4.00 cm. Venous The inferior vena cava is normal in size and collapses greater than 50% with inspiration. Pericardium/Pleural There is no evidence of pericardial effusion. Prior Study Comparison No prior study available for comparison. Measurements 2D Linear Measurements IVSd: 1.58 0.6-0.9/0.6-1.0 cm LVIDd: 3.31 3.9-5.3/4.2-5.9 cm LVIDd Index: 1.66 2.4-3.2/2.2-3.1 cm/m2 LVIDs: 2.24 2.0-3.6 cm LVPWd: 1.63 0.7-1.1 cm Ao Root: 3.50 2.1-3.5 cm LA Diam: 3.40 2.7-3.8/3.0-4.0 cm LAIDs Index: 1.71 1.5-2.3 cm/m2 LV Mass: 250.54 67-162/88-224 g LV Mass Index: 125.90 43-95/49-115 g/m2 LVOT Diam: 2.20 3.0+(-)1.3 cm 2D Systolic Function EF 4C: 63.30 >55% EF 2C: 66.60 >55% EF BiP: 65.60 >55% Mitral Valve MV Pk E: 0.36 MV PK A: 0.98 MV Decel Time: 215.00 E/A: 0.40 E'Lateral: 7.94 E'Medial: 4.24 E/E' Med: 8.50 E/E' Lat: 4.50 PHT: 63.00 MVA PHT: 3.49 Decel [place]: 1.67 Aortic Valve AoV Pk Bryan: 2.06 AoV Mn Bryan: 1.51 AoV VTI: 0.47 AoV Pk Grad: 17.00 Aov Mn Grad: 10.00 ARMANDO Cont.VTI: 2.79 LVOT LVOT Pk Bryan: 1.54 LVOT Mn Bryan: 1.08 LVOT VTI: 0.35 LVOT Pk Grad: 9.00 LVOT Mn Grad: 6.00 LVOT Diam: 2.20 LVOT Area: 3.80 Diastolic Function MV Pk E: 0.36 MV Pk A: 0.98 E/A: 0.40 E'Medial: 4.24 E/E' Med: 8.50 E' Laterial: 7.94 E/E' Lat: 4.50 Right Ventricle TAPSE (mm): 26.00 TVS' Bryan: 11.00 Tricuspid Valve TR Pk Bryan: 2.52 TR Pk Grad: 25.00 RA Press: 3.00 RVSP: 28.00 Great Vessels Aorta Ao Root-2D: 3.50 2.0-3.7 cm Ao Asc: 4.00 2.1-3.4 cm Pulmonary Valve PV Pk Bryan: 0.98 Peak PV Grad: 4.00 Updated in Other Vendor System with Status of Final Que Thibodeaux MD electronically signed on 01/08/2023 11:59:57 AM with status of Final Dictated By: Que Thibodeaux MD Signed By: <Electronically signed by Que Thibodeaux MD in OV> 01/08/23 1159 DD/ 1603 TD/TT: Link And Link Knitting Machine Operator: Assessment & Plan Assessment & Plan (1) Sarcoidosis: Code(s): D86.9 - Sarcoidosis, unspecified (2) Pulmonary nodules: Comment: numerous pulmonary nodules with on going symptoms. Code(s): R91.8 - Other nonspecific abnormal finding of lung field (3) Dyspnea: Code(s): R06.00 - Dyspnea, unspecified Qualifiers: Dyspnea type: dyspnea on exertion Qualified Code(s): R06.09 - Other forms of dyspnea (4) BERTHA (obstructive sleep apnea): Code(s): G47.33 - Obstructive sleep apnea (adult) (pediatric) (5) Asthma: Code(s): J45.909 - Unspecified asthma, uncomplicated Qualifiers: Asthma complication type: uncomplicated Asthma persistence: persistent Asthma severity: moderate Qualified Code(s): J45.40 - Moderate persistent asthma, uncomplicated (6) Murmur: Code(s): R01.1 - Cardiac murmur, unspecified (7) Cardiac hypertrophy: Code(s): I51.7 - Cardiomegaly Plan continue symbicort continue short-acting beta agonist as needed start singulair fluticasone nasal spray neti bottle PM (Distilled water only) Benzonate as needed Cardiology eval for the abnormal ECHO CT chest 08/2023 follow-up in September 2023 Orders: Orders CT chest wo IV con 09/08/23 R91.8 - Other nonspecific abnormal finding of lung field Referrals Cardiology Referral I51.7 - Cardiomegaly Medications: New montelukast (Singulair) 10 mg PO BEDTIME 30 days 30 tabs 11RF J45.909 - Unspecified asthma, uncomplicated Coding Level of Care Code Est Pt Level 4 (31081) Diagnoses Sarcoidosis D86.9 Pulmonary nodules R91.8 Dyspnea on exertion R06.09 Dyspnea type: dyspnea on exertion BERTHA (obstructive sleep apnea) G47.33 Moderate persistent asthma without complication J45.40 Asthma complication type: uncomplicated Asthma persistence: persistent Asthma severity: moderate Murmur R01.1 Cardiac hypertrophy I51.7 Time Spent (min) 18
== END 2023-05-08 13:38 | disposition home or self-care (01) ==
PROVIDERS: PCP Nurse Practitioner Gerontology; Visit Provider Hospitalist
DX: D86.9 Sarcoidosis, unspecified (principal); R91.8 Other nonspecific abnormal finding of lung field; R06.09 Other forms of dyspnea; G47.33 Obstructive sleep apnea (adult) (pediatric); J45.40 Moderate persistent asthma, uncomplicated; R01.1 Cardiac murmur, unspecified; I51.7 Cardiomegaly
CPT/HCPCS: 99214

== ENCOUNTER → 2023-05-08 13:05 | Outpatient (BNVA) | payer OTHER, SELFPAY | PROVIDERS: PCP Nurse Practitioner Gerontology; Visit Provider Hospitalist | DX: R94.31 Abnormal electrocardiogram [ECG] [EKG] (principal); R91.8 Other nonspecific abnormal finding of lung field; R06.00 Dyspnea, unspecified; J44.9 Chronic obstructive pulmonary disease, unspecified; D86.9 Sarcoidosis, unspecified; J45.909 Unspecified asthma, uncomplicated ==

== ENCOUNTER 2023-10-13 13:02 | Outpatient (AMB) | payer OTHER, SELFPAY ==
[2023-10-13 13:17] VITALS: PULSE 74; O2SAT 93; BMI 32.4
--- NOTE | 2023-10-13 13:17 | A.OFFVIS_ITS ---
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 She was offered allergy shots but she does not want to start them at this time. She continues uses Symbicort 2 puffs twice a day. She also uses very her rescue inhaler. Unfortunately she has tried albuterol as a short-acting beta agonist cell resulting significant palpitations and tremors. For that reason we have switched her over to Xopenex HFA and also the nebulized solution that she has had to tolerate much better. She doesn't have any adverse effects when she uses Xopenex as opposed to the side effects that she gets some abuse or. Therefore we will resend her Xopenex to the pharmacy. The patient is not able to use albuterol. We did review her CT scan of the chest last done back in 2017 at [facility]. She does have multiple pulmonary nodules largest measuring 8 mm. She hasn't had imaging now in more than 2 years. The patient needs to have a CT scan to reassess nodular densities. We will do that at [facility]. In addition to that we did review her blood work demonstrating elevated Paul level that may be a sign of active sarcoid. So therefore will recheck the level at this time. Otherwise the patient is without any other complaints 03/13/2022 the patient is here for a pulmonary follow-up visit. The patient has been getting worse in the last week. She is developing a croupy cough in along with shortness of breath and chest tightness. The patient did follow-up with cardiology her and had a full cardiac workup including cardiac catheterization. She was told that everything is fine from a cardiac workup and that most of her symptoms are pulmonary. In the meantime the patient developed this respiratory illness. Will go ahead and treated with antibiotics for what appears to be a bout of tracheobronchitis and will provide also with cough medication. If the patient is not better she will provide us with a sputum culture in order for further analyze the microbiology. I do believe that the patient will require repeat CT scan. Her last CT scan was bout two years ago demonstrating pulmonary nodules and along with airspace disease. The patient has a history sarcoidosis. Ultimately I do believe that to further address her cough appt bronchoscopy may be warranted to further address for endobronchial sarcoid also to assess her trachea for any evidence of tracheomalacia or any other etiologies for cough. 05/22/2022 the patient is here for pulmonary follow-up visit. She still complains of a cough. At this point the cough is nonproductive in nature. Although she does feel like she does have some chest congestion with difficult to expectorate. The coughing spells can be sporadic and be uncomfortable. Moderate severity. Her inhalers do not help. Her nebulizers more effective. Will try to minimize the use of prednisone. The patient does have chronic bronchitis with frequent exacerbations needing prednisone. Therefore she is a good candidate for Daliresp. Will go ahead and start a small dose of Daliresp and she is going to be mindful of her GI potential side effects. Hopeful that she can tolerated we can increase it to the therapeutic dose of 500 mcg. In the meantime okay and also provide her with hypertonic saline and an Acapella valve in order for her to be able to work on chest physical therapy. Again, if the patient continues to be symptomatic once the patient is able we can have her undergo bronchoscopy to further adjust the airways. The patient may have a component of sinus congestion. She should be using her nasal sprays and also consider nasal rinsing. The patient does have significant daytime drowsiness after having COVID. Likely chronic fatigue syndrome the patient unfortunately even after a full night's sleep still feels tired. Denies any symptoms or signs of obstructive sleep apnea. If the patient continues to be symptomatic with daytime drowsiness upon return and upon improvement of her chest physical therapy them with the consider using stimulants to try to improve her daytime wakefulness. 08/28/2022 the patient is here for a pulmonary follow-up visit. The patient still struggling with her breathing. Complains of significant dyspnea on exertion also daytime drowsiness. Her Northford score is elevated 02/16. She sleeps a lot during the daytime. The patient has not had any recent sleep studies. At this point based on her ongoing symptoms will go ahead and abscess. The patient also tried Daliresp to see if this would help with her breathing and exacerbations, but, her symptoms did not get any better and she had significant GI adverse effects to the point that she has to stop it immediately. The patient did not tolerate the therapy. The patient did have COVID in therefore long COVID is indeed in differential Peter for sleep study is negative we can consider stimulant therapy to help with her ongoing symptoms. The patient also has underlying sarcoidosis history and pulmonary nodules. Will plan to repeat the CT scan of the chest to assess her pulmonary nodules in view of her ongoing symptoms. The patient should also undergo pulmonary function studies and consider pulmonary rehabilitation. 11/04/2022 the patient is here for pulmonary follow-up visit. The patient has been sick now for about 4 days. She was exposed to sick contact. Now she has occlude like cough. She has a hard time sleeping at nighttime. The cough is pretty significant. Also had some subjective fevers and chills. She tested negative for COVID. The patient also has had some increased wheezing and chest tightness. She has been using her rescue medication with good effect. Here in the office she does look ill appearing. The patient did have a swab done for RSV flowing COVID-19. Hopefully the results are negative patient will start also some prednisone she does have diabetes will do a low dose. Also started on some antibiotics and also cough suppressant. She we did also review her CT scan of the chest that she had back in August demonstrating hilar lymphadenopathy and pulmonary nodules like this is consistent with her sarcoidosis. Still because of pulmonary nodules she will need a repeat CT scan in a year's time. In addition to that she had pulmonary function studies before she was sick demonstr ating normal lung capacity. 12/12/2022 the patient is here for a pulmonary follow-up visit. The patient is feeling little bit better. He still complains of a cough. Appears to be an upper airway cough syndrome. Likely from postnasal drip. She does have some sinus congestion. She just completed 2 courses of prednisone antibiotics for the ongoing lower respiratory infectious process. Seems to be doing better this time overall. We did review again her CT scan from [facility] from the summer of 2022 demonstrating stable changes. Patient also have a small hiatal hernia which may be contributing to the cough. Did talk about potentially consider bronchoscopy if the patient is no better. She is going to continue therapies for her nasal congestion and cough will continue with the current respiratory therapy. If she does not seen improvement was it worsens she will call will schedule bronchoscopy. Also on exam she does have a murmur. The patient has had a cardiac workup including cardiac cath and echo stress but I do not see an echocardiogram to assess valvular disease. Therefore will request 1 at this time. 05/08/2023 the patient for pulmonary follow-up visit. She has feeling a lot better. Over the winter time she did get a viral syndrome likely RSV. Resulting in significant asthma flare-up. The patient initially was present medications without any significant improvement and then called again. We sent her higher dose of prednisone although she does have diabetes. She did tolerate the 60 mg of prednisone with a sugar increasing to about 250. Now the patient is back to baseline. She does have some dyspnea on exertion [id number] severity. We had done an echocardiogram back in December. I did competent to my note. Appears that she does have an asymmetrical left ventricular septal hypertrophy. It was described as severe. In addition to that she has not ectatic aorta measuring 4 cm in size. Patient does have some diastolic dysfunction because of the hypertrophy most likely. She also has significant murmur exam although no significant valvular disease appreciated on the echocardiogram. She had been seen by Cardiology in the past, pt evaluate Cardiology. Will send a referral again in order for her to be continued to be evaluated specially with significant cardiac hypertrophy. The patient also had a CT scan at [facility] back in August 2022 demonstrating multiple pulmonary nodules largest 1 measuring 7 mm in size. Will plan to repeat the CT scan again in August 2023 and she will follow-up after that. The patient also has significant lymphadenopathy. 10/13/2023 the patient is here for pulmonary follow-up visit. The patient overall is feeling better from a respiratory status. She has been using her inhalers. She is no longer on prednisone which is reassuring. The patient still complains of dyspnea on exertion. [id number]-uemlkhoe severity. She did follow-up with Cardiology. Her beta-alejandra was increased. I did caution her that the nonselective beta-blockers can resulting worsening bronchospasms. She is on propranolol. She did have an echocardiogram demonstrated moderate hypertrophic changes of the left ventricle. She will follow-up with the crystal mounter. In addition to that the patient did have a CT scan of the chest. We did personally review. Pulmonary nodules appear to be stable which is reassuring. These are consistent with history sarcoidosis. In addition to that she does have some calcifications of the coronary arteries which are likely stable plaque. Apparently the patient did have a stress test couple years ago. She will continue to follow-up with cardiology. In addition to that it was mentioned she has fatty liver. She also follow-up with her primary care doctor regarding that. I did explain to her that with the amount of prednisone she was using the may have resulted in some metabolic derangements. The patient will continue therapy. No further CT scans at this time. The patient follow-up in 6-8 months. If she develops any issues prior to that she will call for an earlier assessment. She still has daytime drowsiness. Her Northford score is elevated 24. She did have a home sleep study but did not record. She was supposed to call to reschedule but she has not done as of yet. She will consider at this time. She is reluctant because she does not like the idea of sleeping with CPAP. 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 BERTHA (obstructive sleep apnea) Asthma-COPD overlap syndrome Bronchitis Dyspnea Pulmonary nodules Sarcoidosis Asthma Social History (Updated 10/16/21 @ 09:14 by Estee Perez Radha) Household Members: Spouse Patient Tobacco Use Status: Never used Tobacco Review of Systems Const Denies chills, Reports fatigue, Denies malaise and Denies night sweats ENT Denies change in voice, Denies lip swelling, Denies mouth pain, Reports nasal congestion, Reports nasal discharge and Denies tongue swelling Card Denies chest pain and Reports dyspnea on exertion Resp Denies change in phlegm color, Denies chest congestion, Reports cough, Denies hemoptysis, Denies pain on inspiration, Denies pain with cough, Reports dyspnea on exertion and Denies wheezing GI Denies abdominal pain Musc Denies no additional complaints Neuro Denies Neuro-related abnormal movements Psych Denies no additional complaints Endo Reports fatigue Manan/Lymph Denies easy bleeding and Denies lymphadenopathy Aller/Immun Denies lip swelling, Denies tongue swelling and Denies wheezing Physical Exam Vital Signs: Last Vital Signs Pulse 74 08/19/24 13:17 Pulse Ox 93 10/13/23 13:17 Oxygen Delivery Method Room Air 10/13/23 13:17 BMI result Body Mass Index 32.4 Const General: alert HEENT General nose exam: Abnormal external nose present and Nasal discharge present Eyes Pupils: Equal, round and reactive pupils present Neck Neck: Yes normal visual inspection, Yes full ROM and Yes no lymphadenopathy Chest Chest palpation & inspection: normal inspection of the chest Resp Effort & Inspection: normal respiratory effort and no cough (croup) Auscultation: clear to auscultation bilaterally, no crackles, no rales, no rhonchi and no wheezes Cardio Rate: regular rate Rhythm: regular rhythm Heart sounds: S1 normal heart sound present and S2 normal heart sound present GI Palpation (GI): Soft to palpation and nontender Auscultation: normal bowel sounds General: Yes no CVA tenderness Back/Spine/Pelvis Back: no CVA tenderness Skin General skin exam: rashes and/or lesions noted Neuro Cranial nerves: Yes Equal, round and reactive pupils present Assessment & Plan Assessment & Plan (1) Sarcoidosis: Comment: stable Code(s): D86.9 - Sarcoidosis, unspecified Category: Medical (2) Pulmonary nodules: Comment: numerous pulmonary nodules with on going symptoms. Code(s): R91.8 - Other nonspecific abnormal finding of lung field Category: Medical (3) Dyspnea: Code(s): R06.00 - Dyspnea, unspecified Category: Medical Qualifiers: Dyspnea type: dyspnea on exertion Qualified Code(s): R06.09 - Other forms of dyspnea (4) BERTHA (obstructive sleep apnea): Code(s): G47.33 - Obstructive sleep apnea (adult) (pediatric) Category: Medical (5) Asthma: Code(s): J45.909 - Unspecified asthma, uncomplicated Category: Medical Qualifiers: Asthma complication type: uncomplicated Asthma persistence: persistent Asthma severity: moderate Qualified Code(s): J45.40 - Moderate persistent asthma, uncomplicated (6) Murmur: Code(s): R01.1 - Cardiac murmur, unspecified Category: Medical (7) Cardiac hypertrophy: Code(s): I51.7 - Cardiomegaly Category: Medical Plan continue symbicort continue short-acting beta agonist as needed continue singulair fluticasone nasal spray neti bottle PM (Distilled water only) Benzonate as needed Cardiology eval for the abnormal ECHO follow-up in 6-8 months Coding Level of Care Code Est Pt Level 4 (43723) Diagnoses Sarcoidosis D86.9 Pulmonary nodules R91.8 Dyspnea on exertion R06.09 Dyspnea type: dyspnea on exertion BERTHA (obstructive sleep apnea) G47.33 Moderate persistent asthma without complication J45.40 Asthma complication type: uncomplicated Asthma persistence: persistent Asthma severity: moderate Murmur R01.1 Cardiac hypertrophy I51.7 Time Spent (min) 17
== END 2023-10-13 13:39 | disposition home or self-care (01) ==
PROVIDERS: PCP Nurse Practitioner Gerontology; Visit Provider Hospitalist
DX: D86.9 Sarcoidosis, unspecified (principal); R91.8 Other nonspecific abnormal finding of lung field; R06.09 Other forms of dyspnea; G47.33 Obstructive sleep apnea (adult) (pediatric); J45.40 Moderate persistent asthma, uncomplicated; R01.1 Cardiac murmur, unspecified; I51.7 Cardiomegaly
CPT/HCPCS: 99214

== ENCOUNTER → 2023-10-13 13:02 | Outpatient (BNVA) | payer OTHER, SELFPAY | PROVIDERS: PCP Nurse Practitioner Gerontology; Visit Provider Hospitalist | DX: R94.31 Abnormal electrocardiogram [ECG] [EKG] (principal); R91.8 Other nonspecific abnormal finding of lung field; R06.00 Dyspnea, unspecified; J44.9 Chronic obstructive pulmonary disease, unspecified; D86.9 Sarcoidosis, unspecified; J45.909 Unspecified asthma, uncomplicated ==

== ENCOUNTER 2024-05-28 13:32 | Outpatient (AMB) | payer OTHER, SELFPAY ==
[2024-05-28 13:43] VITALS: BP 108/56; PULSE 71; O2SAT 95; BMI 31.3
--- NOTE | 2024-05-28 13:43 | A.OFFVIS_ITS ---
Vital Signs 05/28/24 13:43 Height 5 ft 6 in Weight 194 lb 0.108 oz BMI 31.3 BP 108/56 L Blood Pressure Location Rt brachial Position Sitting Pulse 71 Pulse Source Pulse Oximeter Pulse Oximetry (%) 95 Oxygen Delivery Method Room Air Intake Visit Reasons: Cough Allergies demerol Allergy (Unknown, Uncoded 05/28/24 13:45) hives duraprep Allergy (Unknown, Uncoded 05/28/24 13:45) /welts HPI Comments Details: The patient is a 68 year woman with a known history of moderate persistent asthma, sarcoidosis and pulmonary nodules. 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 She was offered allergy shots but she does not want to start them at this time. She continues uses Symbicort 2 puffs twice a day. She also uses very her rescue inhaler. Unfortunately she has tried albuterol as a short-acting beta agonist cell resulting significant palpitations and tremors. For that reason we have switched her over to Xopenex HFA and also the nebulized solution that she has had to tolerate much better. She doesn't have any adverse effects when she uses Xopenex as opposed to the side effects that she gets some abuse or. Therefore we will resend her Xopenex to the pharmacy. The patient is not able to use albuterol. We did review her CT scan of the chest last done back in 2016 at [facility]. She does have multiple pulmonary nodules largest measuring 8 mm. She hasn't had imaging now in more than 2 years. The patient needs to have a CT scan to reassess nodular densities. We will do that at [facility]. In addition to that we did review her blood work demonstrating elevated Paul level that may be a sign of active sarcoid. So therefore will recheck the level at this time. Otherwise the patient is without any other complaints 03/13/2022 the patient is here for a pulmonary follow-up visit. The patient has been getting worse in the last week. She is developing a croupy cough in along with shortness of breath and chest tightness. The patient did follow-up with cardiology her and had a full cardiac workup including cardiac catheterization. She was told that everything is fine from a cardiac workup and that most of her symptoms are pulmonary. In the meantime the patient developed this respiratory illness. Will go ahead and treated with antibiotics for what appears to be a bout of tracheobronchitis and will provide also with cough medication. If the patient is not better she will provide us with a sputum culture in order for further analyze the microbiology. I do believe that the patient will require repeat CT scan. Her last CT scan was bout two years ago demonstrating pulmonary nodules and along with airspace disease. The patient has a history sarcoidosis. Ultimately I do believe that to further address her cough appt bronchoscopy may be warranted to further address for endobronchial sarcoid also to assess her trachea for any evidence of tracheomalacia or any other etiologies for cough. 05/22/2022 the patient is here for pulmonary follow-up visit. She still complains of a cough. At this point the cough is nonproductive in nature. Although she does feel like she does have some chest congestion with difficult to expectorate. The coughing spells can be sporadic and be uncomfortable. Moderate severity. Her inhalers do not help. Her nebulizers more effective. Will try to minimize the use of prednisone. The patient does have chronic bronchitis with frequent exacerbations needing prednisone. Therefore she is a good candidate for Daliresp. Will go ahead and start a small dose of Daliresp and she is going to be mindful of her GI potential side effects. Hopeful that she can tolerated we can increase it to the therapeutic dose of 500 mcg. In the meantime okay and also provide her with hypertonic saline and an Acapella valve in order for her to be able to work on chest physical therapy. Again, if the patient continues to be symptomatic once the patient is able we can have her undergo bronchoscopy to further adjust the airways. The patient may have a component of sinus congestion. She should be using her nasal sprays and also consider nasal rinsing. The patient does have significant daytime drowsiness after having COVID. Likely chronic fatigue syndrome the patient unfortunately even after a full night's sleep still feels tired. Denies any symptoms or signs of obstructive sleep apnea. If the patient continues to be symptomatic with daytime drowsiness upon return and upon improvement of her chest physical therapy them with the consider using stimulants to try to improve her daytime wakefulness. 08/28/2022 the patient is here for a pulmonary follow-up visit. The patient still struggling with her breathing. Complains of significant dyspnea on exertion also daytime drowsiness. Her Bee score is elevated 02/16. She sleeps a lot during the daytime. The patient has not had any recent sleep studies. At this point based on her ongoing symptoms will go ahead and abscess. The patient also tried Daliresp to see if this would help with her breathing and exacerbations, but, her symptoms did not get any better and she had significant GI adverse effects to the point that she has to stop it immediately. The patient did not tolerate the therapy. The patient did have COVID in therefore long COVID is indeed in differential Peter for sleep study is negative we can consider stimulant therapy to help with her ongoing symptoms. The patient also has underlying sarcoidosis history and pulmonary nodules. Will plan to repeat the CT scan of the chest to assess her pulmonary nodules in view of her ongoing symptoms. The patient should also undergo pulmonary function studies and consider pulmonary rehabilitation. 11/04/2022 the patient is here for pulmonary follow-up visit. The patient has been sick now for about 4 days. She was exposed to sick contact. Now she has occlude like cough. She has a hard time sleeping at nighttime. The cough is pretty significant. Also had some subjective fevers and chills. She tested negative for COVID. The patient also has had some increased wheezing and chest tightness. She has been using her rescue medication with good effect. Here in the office she does look ill appearing. The patient did have a swab done for RSV flowing COVID-19. Hopefully the results are negative patient will start also some prednisone she does have diabetes will do a low dose. Also started on some antibiotics and also cough suppressant. She we did also review her CT scan of the chest that she had back in August demonstrating hilar lymphadenopathy and pulmonary nodules like this is consistent with her sarcoidosis. Still because of pulmonary nodules she will need a repeat CT scan in a year's time. In addition to that she had pulmonary function studies before she was sick demonstrating normal lung capacity. 12/12/2022 the patient is here for a pulmonary follow-up visit. The patient is feeling little bit better. He still complains of a cough. Appears to be an upper airway cough syndrome. Likely from postnasal drip. She does have some sinus congestion. She just completed 2 courses of prednisone antibiotics for the ongoing lower respiratory infectious process. Seems to be doing better this time overall. We did review again her CT scan from [facility] from the summer of 2022 demonstrating stable changes. Patient also have a small hiatal hernia which may be contributing to the cough. Did talk about potentially consider bronchoscopy if the patient is no better. She is going to continue therapies for her nasal congestion and cough will continue with the current respiratory therapy. If she does not seen improvement was it worsens she will call will schedule bronchoscopy. Also on exam she does have a murmur. The patient has had a cardiac workup including cardiac cath and echo stress but I do not see an echocardiogram to assess valvular disease. Therefore will request 1 at this time. 05/08/2023 the patient for pulmonary follow-up visit. She has feeling a lot better. Over the winter time she did get a viral syndrome likely RSV. Resulting in significant asthma flare-up. The patient initially was present medications without any significant improvement and then called again. We sent her higher dose of prednisone although she does have diabetes. She did tolerate the 60 mg of prednisone with a sugar increasing to about 250. Now the patient is back to baseline. She does have some dyspnea on exertion [id number] severity. We had done an echocardiogram back in December. I did competent to my note. Appears that she does have an asymmetrical left ventricular septal hypertrophy. It was described as severe. In addition to that she has not ectatic aorta measuring 4 cm in size. Patient does have some diastolic dysfunction because of the hypertrophy most likely. She also has significant murmur exam although no significant valvular disease appreciated on the echocardiogram. She had been seen by Cardiology in the past, pt evaluate Cardiology. Will send a referral again in order for her to be continued to be evaluated specially with significant cardiac hypertrophy. The patient also had a CT scan at [facility] back in August 2022 demonstrating multiple pulmonary nodules largest 1 measuring 7 mm in size. Will plan to repeat the CT scan again in August 2023 and she will follow-up after that. The patient also has significant lymphadenopathy. 10/13/2023 the patient is here for pulmonary follow-up visit. The patient overall is feeling better from a respiratory status. She has been using her inhalers. She is no longer on prednisone which is reassuring. The patient still complains of dyspnea on exertion. Fnia-ho-gbywjnew severity. She did follow-up with Cardiology. Her beta-alejandra was increased. I did caution her that the nonselective beta-blockers can resulting worsening bronchospasms. She is on propranolol. She did have an echocardiogram demonstrated moderate hypertrophic changes of the left ventricle. She will follow-up with the waiter. In addition to that the patient did have a CT scan of the chest. We did personally review. Pulmonary nodules appear to be stable which is reassuring. These are consistent with history sarcoidosis. In addition to that she does have some calcifications of the coronary arteries which are likely stable plaque. Apparently the patient did have a stress test couple years ago. She will continue to follow-up with cardiology. In addition to that it was mentioned she has fatty liver. She also follow-up with her primary care doctor regarding that. I did explain to her that with the amount of prednisone she was using the may have resulted in some metabolic derangements. The patient will continue therapy. No further CT scans at this time. The patient follow-up in 6-8 months. If she develops any issues prior to that she will call for an earlier assessment. She still has daytime drowsiness. Her Bee score is elevated 01/17. She did have a home sleep study but did not record. She was supposed to call to reschedule but she has not done as of yet. She will consider at this time. She is reluctant because she does not like the idea of sleeping with CPAP. 05/28/2024 the patient is here for sick visit. Apparently her grandson was sick. He had croup. Ultimately she developed a cough for the last week. She also developed a significant chest tightness and wheezing. Moderate severity. She has had a hard time sleeping. She could not tolerate his symptoms any longer descend 2:. We did swab her for flu RSV and COVID which were all negative. The patient does have a barky cough which is pretty significant very active. She also has wheezing on examination. The patient does have a history of diabetes. We did give her Solu-Medrol 125 mg IM x1. She knows to check her sugars and she will follow-up with her primary care doctor who also helps her with her diabetes. After that the patient can start prednisone taper. She will start antibiotics and cough medication. If she is no better she will call back. She will continue with current respiratory therapy. She does have nebulizer home and has been using Xopenex. Has not been working as good so send her DuoNeb. Although it may cause her to have more tremulousness. No need for an x-ray right now. The patient has a follow-up in June which she should keep for now. 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 BERTHA (obstructive sleep apnea) Asthma-COPD overlap syndrome Bronchitis Dyspnea Pulmonary nodules Sarcoidosis Asthma Social History Household Members: Spouse Patient Tobacco Use Status: Never used Tobacco Review of Systems Const Denies chills, Reports fatigue, Denies malaise and Denies night sweats ENT Denies change in voice, Denies lip swelling, Denies mouth pain, Reports nasal congestion, Reports nasal discharge and Denies tongue swelling Card Denies chest pain and Reports dyspnea on exertion Resp Denies change in phlegm color, Reports chest congestion, Reports cough, Denies hemoptysis, Denies pain on inspiration, Denies pain with cough, Reports dyspnea on exertion and Reports wheezing GI Denies abdominal pain Musc Denies no additional complaints Neuro Denies Neuro-related abnormal movements Psych Denies no additional complaints Endo Reports fatigue Manan/Lymph Denies easy bleeding and Denies lymphadenopathy Aller/Immun Denies lip swelling, Denies tongue swelling and Reports wheezing Physical Exam Vital Signs: Last Vital Signs Pulse 71 05/28/24 13:43 BP 108/56 L 05/28/24 13:43 Pulse Ox 95 05/28/24 13:43 Oxygen Delivery Method Room Air 05/28/24 13:43 BMI result Body Mass Index 31.3 Const General: alert HEENT General nose exam: Abnormal external nose present and Nasal discharge present Eyes Pupils: Equal, round and reactive pupils present Neck Neck: Yes normal visual inspection, Yes full ROM and Yes no lymphadenopathy Chest Chest palpation & inspection: normal inspection of the chest Resp Effort & Inspection: normal respiratory effort, Actively coughing (croup) and prolonged expiratory phase Auscultation: no crackles, no rales, rhonchi, wheezes and diminished lung sounds Cardio Rate: regular rate Rhythm: regular rhythm Heart sounds: S1 normal heart sound present and S2 normal heart sound present GI Palpation (GI): Soft to palpation and nontender Auscultation: normal bowel sounds General: Yes no CVA tenderness Back/Spine/Pelvis Back: no CVA tenderness Skin General skin exam: rashes and/or lesions noted Neuro Cranial nerves: Yes Equal, round and reactive pupils present Office Meds methylprednisolone sod suc(PF) 125 mg/2 mL solution for injection Performing Provider: Campbell Amaya MD Performing Location: [facility] [place] Pulmonology Services Administered by: Karen Howell LPN on 05/28/24 14:21 Dose Route Admin Location Dispensed Lot Number Expiration Date NDC Basket Mender 125 mg IM R butt 1 ea [id number] 02/23/26 5210-3701-46 [employer] Assessment & Plan Assessment & Plan (1) Croup: Code(s): J05.0 - Acute obstructive laryngitis [croup] Category: Medical (2) Sarcoidosis: Comment: stable Code(s): D86.9 - Sarcoidosis, unspecified Category: Medical (3) Pulmonary nodules: Comment: numerous pulmonary nodules with on going symptoms. Code(s): R91.8 - Other nonspecific abnormal finding of lung field Category: Medical (4) Dyspnea: Code(s): R06.00 - Dyspnea, unspecified Category: Medical Qualifiers: Dyspnea type: dyspnea on exertion Qualified Code(s): R06.09 - Other forms of dyspnea (5) BERTHA (obstructive sleep apnea): Code(s): G47.33 - Obstructive sleep apnea (adult) (pediatric) Category: Medical (6) Asthma: Code(s): J45.909 - Unspecified asthma, uncomplicated Category: Medical Qualifiers: Asthma severity: moderate Asthma persistence: persistent Asthma complication type: with acute exacerbation Qualified Code(s): J45.41 - Moderate persistent asthma with (acute) exacerbation (7) Murmur: Code(s): R01.1 - Cardiac murmur, unspecified Category: Medical (8) Cardiac hypertrophy: Code(s): I51.7 - Cardiomegaly Category: Medical Plan Somedrol x 1, then prednisone taper Zpack cough medicnie continue symbicort continue short-acting beta agonist as needed Trial Duoneb continue singulair fluticasone nasal spray neti bottle PM (Distilled water only) Benzonate as needed Cardiology eval for the abnormal ECHO follow-up in 2 months Orders: Orders AMB Methylprednisolone Sod Succ Injection 05/28/24 J05.0 - Acute obstructive laryngitis [croup] SARS-CoV2/FLU/RSV 05/28/24 J05.0 - Acute obstructive laryngitis [croup] Medications: New azithromycin 500 mg PO DAILY 5 tabs 0RF 5 days codeine-guaifenesin 10-100 mg/5 mL 10 mL PO Q6H PRN 300 mL 0RF cough 10 days prednisone PO daily; Take 2 tabs daily x 5 days, then 1 tablet daily x 5 days 15 tabs 0RF 10 days ipratropium-albuterol 0.5 mg-3 mg(2.5 mg base)/3 mL 3 mL inhalation BID 180 mL 11RF 30 days J44.9 - Chronic obstructive pulmonary disease, unspecified Coding Level of Care Code Est Pt Level 4 (92508) Diagnoses Croup J05.0 Sarcoidosis D86.9 Pulmonary nodules R91.8 Dyspnea on exertion R06.09 Dyspnea type: dyspnea on exertion BERTHA (obstructive sleep apnea) G47.33 Moderate persistent asthma with acute exacerbation J45.41 Asthma severity: moderate Asthma persistence: persistent Asthma complication type: with acute exacerbation Murmur R01.1 Cardiac hypertrophy I51.7 Time Spent (min) 17
--- OUTSIDE RECORDS SUMMARY | 2024-05-28 15:21 | XMS_ITS | Clinical Summary ---
Author Organization Patient Business Ser [facility] Address [address] [place] [address] Care Team Providers Care Surgery Consultant Name Role Phone Isela Javed NP Primary Care Provider [phone] Allergies Active Allergy Reactions Criticality Noted Date Comments Droperidol 06/18/2016 Iodine Povacry-Iso Alcohol 3 Meperidine Hives 12/10/2006 Medications albuterol HFA (PROAIR HFA ; PROVENTIL HFA ; VENTOLIN HFA) 90 mcg/actuation inhaler Inhale 2 Puffs into the lungs every 4 hours as needed. Active amLODIPine (NORVASC) 5 mg tablet Take 1.5 Tabs by mouth daily. 0 Active cetirizine (ZyrTEC) 10 mg tablet Take 1 Tab by mouth daily. 0 Active clonazePAM (KlonoPIN) 0.5 mg tablet Take 0.5 mg by mouth 2 times daily as needed. Active fenofibrate (TRICOR) 48 mg tablet Take 54 mg by mouth 1 (one) time each day. Active levalbuterol (XOPENEX) 1.25 mg/3 mL nebulizer solution Take 1 Ampule by nebulization every 4 hours as needed for Wheezing for up to 90 days. 0 Active levalbuterol (XOPENEX HFA) 45 mcg/actuation inhaler Inhale 1-2 Puffs into the lungs every 4 hours as needed for Wheezing or Shortness of Breath for up to 90 days. 0 Active levothyroxine sodium (TIROSINT) 50 mcg capsule Take 1 Tab by mouth daily. Active ondansetron (ZOFRAN) 4 mg tablet Take 4 mg by mouth every 8 hours as needed. Active pantoprazole (PROTONIX) 40 mg EC tablet Take 1 Tablet by mouth daily. Active pravastatin (PRAVACHOL) 40 mg tablet Take 40 mg by mouth daily. Active zolpidem (AMBIEN) 10 mg tablet Take 10 mg by mouth at bedtime as needed. Active budesonide-form oteroL (Symbicort) 160-4.5 mcg/actuation inhaler INHALE 2 PUFFS INTO THE LUNGS TWICE A DAY 0 Active buPROPion SR (WELLBUTRIN SR) 150 mg 12 hr tablet Take 1 tablet (150 mg total) by mouth 2 (two) times a day. Do not crush, chew, or split. Active cholecalciferol (VITAMIN D-3) 50 mcg (2,000 unit) tablet Take 4 tablets (8,000 Units total) by mouth 1 (one) time each day. Active propranolol LA (INDERAL LA) 80 mg 24 hr capsule Take 1 capsule (80 mg total) by mouth 1 (one) time each day. Do not crush, chew, or split. 30 each 11 4 01/29/20 25 Active aspirin 81 mg EC tablet Take 1 tablet (81 mg total) by mouth 1 (one) time each day. 30 each 4 01/29/20 25 Active Active Problems Problem Noted Date Diagnosed Date Coronary artery calcification 01/29/2024 Assessment & Plan (01/29/2024 2:41 PM EST): She had a cardiac catheterization in 2021 and had no obstructive coronary artery disease. She noted sweatiness, dizziness and fatigue with elevated heart rate during exercise. EKG today shows incomplete left bundle branch block with ST-T abnormality inferiorly. Will repeat exercise nuclear stress test. Will increase propranolol dosage. Ascending aorta dilatation 02/27/2022 Overview (12/15/2023): Last Assessment & Plan: Continue to monitor. Chest pressure 11/13/2021 Overview (12/15/2023): Last Assessment & Plan: She is been having exertional chest pressure for a few months but no resting sywmptoms. Giving her risk factors, will assess for the possibility of coronary artery disease. We will arrange exercise nuclear perfusion stress test. She has been on statin, aspirin, and beta-alejandra and I will continue current regimen. Shortness of breath 11/13/2021 Overview (12/15/2023): Last Assessment & Plan: Cardi catheterization in December 2021 showed no obstructive CAD. EKG today showed normal profound ST-T abnormality in inferior leads compared to previous EKG. Could be related to elevated heart rate. I will increase propranolol to 60 mg daily to see whether that helps her symptoms and EKG abnormality. I will obtain a hard copy of her most recent echocardiogram done in [facility]. Depends on image, we will further address whether we will do at once her imagings such cardiac CT or MRI. Due to the degree of coronary artery calcification, with target LDL at 70. Assessment & Plan (01/29/2024 2:41 PM EST): Orders: ECG 12 lead Abnormal EKG 11/08/2021 Allergic conjunctivitis of both eyes 03/02/2019 Chronic rhinitis 03/02/2019 Kidney stone 12/31/2016 Multiple pulmonary nodules 12/10/2016 Sarcoidosis 12/10/2016 Gastroesophageal reflux disease 09/16/2016 Hypercholesterolemia 09/16/2016 Assessment & Plan (01/29/2024 2:41 PM EST): Will repeat lipid profile and try to target LDL below 70. Hypothyroidism 09/16/2016 Low back pain 03/05/2016 Mixed anxiety depressive disorder 03/05/2016 Vitamin D deficiency 03/05/2016 Asthma 08/10/2015 Osteopenia 06/15/2014 Obstructive sleep apnea syndrome 07/29/2013 Essential tremor 05/25/2013 Irritable bowel syndrome 05/15/2013 Rosacea 05/15/2013 Periodic limb movement disorder 12/25/2012 Insomnia 03/25/2012 Encounters Date Type Department Care Team Description 05/11/2024 Telephone Gastroenterology - [address] [place] [address] Vidhi Simmons MA from Last 3 Months Immunizations Name Administration Dates Next Due Pneumococcal polysaccharide 23 valent (Pneumovax 23) 2yo and older 09/15/2012 Tdap Tetanus diptheria acell ular pertussis (Boostrix; Adacel) 7yo and older 07/25/2009 Surgical History Surgery Date Site/Laterality Comments TONSILLECTOMY PROCEDURE: HISTORICAL TONSILLECTOMY APPENDECTOMY PROCEDURE: GA APPENDECTOMY SECTION PROCEDURE: HISTORICAL DELIVERY HYSTERECTOMY PROCEDURE: HISTORICAL HYSTERECTOMY BLADDER SURGERY PROCEDURE: HISTORICAL BLADDER SURGERY OTHER SURGICAL HISTORY PROCEDURE: GA DILATION & CURETTAGE DX&/THER NONOBSTETRIC Medical History Medical History Date Comments Kidney stone 12/31/2016 DX:Kidney stone Dyspnea, unspecified DX:Dyspnea, unspecified Asthma DX:Asthma Pulmonary nodules DX:Pulmonary n odules Sarcoidosis DX:Sarcoidosis Social History Tobacco Use Types Packs/Day Years Used Date Smoking Tobacco: Never Smokeless Tobacco: Never Alcohol Use Standard Drinks/Week Comments Not Currently 0 (1 standard drink = 0.6 oz pur e alcohol) Comments Unknown Sex and Gender Information Value Date Recorded Sex Assigned at Female 10/24/2020 3:05 PM EDT Legal Sex Female 11:28 AM EST Gender Identity Female 10/24/2020 3:05 PM EDT Sexual Orientation Straight 10/24/2020 3: 05 PM EDT Obstetrics History Last Filed Vital Signs Vital Sign Reading Time Taken Comments Blood Pressure 112/78 02/12/2024 10:13 AM EST Pulse 68 01/29/2024 1:02 PM EST Temperature - - Respiratory Rate - - Oxygen Saturation 95% 01/29/2024 1:02 PM EST Inhaled Oxygen Concentration - - Weight 90.3 kg (199 lb) 02/12/2024 10:02 AM EST Height 165.1 cm (5' 5 ) 02/12/2024 10:02 AM EST Body Mass Index 33.12 02/12/2024 10:02 AM EST Plan of Treatment Upcoming Encounters Date Type Department Care Team ([facility] st Contact Info) Description 06/08/2024 1:50 PM EDT Office Visit Gastroenterology - [address] [place] [address] Azul Vasquez [employer] [address] [facility] [address] [place] [address] Health Maintenance Due Date Last Done Comments Diabetes: Annual Foot Exam 08/23/1967 Diabetes: Annual Retina Eye Exam 08/23/1967 Colorectal Cancer Screening: Colonoscopy 03/27/2019 Depression Screening 03/27/2019 Hepatitis C Screening 03/27/2019 Social Influencers of Health Screening 03/27/2019 Diabetes: Annual GFR (Glomerular Filtration Rate) 08/19/2019 08/18/2018 Zoster Vaccines (2 of 2) 01/02/2021 11/07/2020 Falls Risk Assessment 2022 Diabetes: Blood Sugar Control Test (HGBA1C) 12/31/2023 Hypertension/CHF/CAD Annual BMP Blood Test 12/31/2023 08/18/2018 Diabetes: Annual Urine Albumin-Creatinine Ratio (uACR) 09/25/2024 09/26/2023 Breast Cancer Screening 12/15/2025 12/16/19 24, 12/09/2022, 12/07/2021, Additional history exists Cholesterol Screening (Lipid Panel) 11/30/2026 11/30/2021 DTaP,Tdap,and Td Vaccines (3 - Td or Tdap) 04/29/2032 04/29/2022, 07/25/2009 Osteoporosis Screening (Bone Density Screening) 12/29/2033 12/30/2023, 11/13/2020 Pneumococcal Vaccine: 50+ Years Completed 08/28/2022, 09/15/2012 RSV Immunization Adult Patients Completed 01/28/2023 COVID-19 Vaccine Completed 11/27/2023, 04/2022, 12/21/2021, Additional history exists Influenza Vaccine Completed 11/27/2023, 12/27/2022 HIB Vaccines Aged Out No longer eligi ble based on patient's age to complete this topic HPV Vaccines Aged Out No longer eligi ble based on patient's age to complete this topic Hepatitis A Vaccines Aged Out No long er eligible based on patient's age to complete this topic Hepatitis B Vaccines Aged Out No long er eligible based on patient's age to complete this topic IPV Vaccines Aged Out No longer eligi ble based on patient's age to complete this topic MMR Vaccines Aged Out No longer eligi ble based on patient's age to complete this topic Meningococcal ACWY Vaccine Aged Out N o longer eligible based on patient's age to complete this topic Meningococcal B Vacine Aged Out No lo nger eligible based on patient's age to complete this topic RSV Immunization Patients Under 20 months Aged Out No longer eligible based on patient's age to complete this topic Varicella Vaccines Aged Out No longer eligible based on patient's age to complete this topic Procedures Procedure Name Priority Date/Time Associated Diagnosis Comments BD BONE DENSITY DXA AXIAL SKELETON Routine 12/30/2023 2:15 PM EST Asymptomatic menopausal state NADIA SCREENING DIGITAL Routine 12/16/2023 3:54 PM EDT LIPID PANEL Routine 11/30/2021 HM ANNUAL BMP BLOOD TEST Routine 08/18/2018 from Last 3 Months or Most Recently Relevant to Health Maintenance Results * BD Bone Density DXA Axial Skeleton (12/30/2023 2:15 PM EST) Anatomical Region Laterality Modality Wrist, Hip, L-spine Bone Densito metry 12/30/2023 3:56 PM EST Impressions 12/30/2023 3:57 PM EST Osteopenia. ? [id number] -------- FINAL REPORT -------- Dictated By: Aparna Bauman Dictated Date: 12/30/2023 15:56 ET Assigned Physician: Aparna Bauman Reviewed and Electronically Signed By: Aparna Bauman Signed Date: 12/30/2023 15:57 ET Workstation ID: [id number] Transcribed By: Self Edit Transcribed Date: 12/30/2023 15:56 ET Narrative 12/30/2023 3:57 PM EST History: Low estrogen state due to menopause. Comparison: 11/13/20 Findings: Bone densitometry is performed utilizing dual energy x-ray absorptiometry (DXA) in the RAREFORM unit. The lumbar spine and proximal femora are evaluated in the AP projection. The FRAX questionaire was completed. The results indicate low bone mass (osteopenia), with a lumbar spine T-score of -2.0. The Z score is -1.2, indicating low bone mineral density for age. There have been statistically significant decreases in bone mineral density in the spine and in the right total femur since the previous study. ??The detailed DEXA report will be mailed to the referring physician's office. DualFemur FRAX: 10-year Probability of Fracture: Major Osteoporotic 8.0 percent ??Hip 0.7 percent. Procedure Note Aparna Bauman MD - 12/30/2023 History: Low estrogen state due to menopause. Comparison: 11/13/20 Findings: Bone densitometry is performed utilizing dual energy x-ray absorptiometry(DXA) in the RAREFORM unit. The lumbar spine and proximal femora areevaluated in the AP projection. The FRAX questionaire was completed. The results indicate low bone mass (osteopenia), with a lumbar spineT-score of - 2.0. The Z score is -1.2, indicating low bone mineral densityfor age. There have been statistically significant decreases in bone mineraldensity in the spine and in the right total femur since the previousstudy. The detailed DEXA report will be mailed to the referringphysician's office. DualFemur FRAX: 10-year Probability of Fracture: Major Osteoporotic 8.0percent Hip 0.7 percent. IMPRESSION: Osteopenia. [id number] -------- FINAL REPORT -------- Dictated By: Aparna Bauman Dictated Date: 12/30/2023 15:56 ET Assigned Physician: Aparna Bauman Reviewed and Electronically Signed By: Aparna Bauman Signed Date: 12/30/2023 15:57 ET Workstation ID: [id number] Transcribed By: Self Edit Transcribed Date: 12/30/2023 15:56 ET Isela Javed NP IMG DXA PROCEDURES Final Result * NADIA SCREENING DIGITAL (12/16/2023 3:54 PM EDT) Anatomical Region Laterality Modality Mammography 12/16/2023 1:14 PM EDT Narrative 12/16/2023 3:54 PM EDT [facility] Diagnostic Imaging Department [address] [place] [address] Patient: ??IRIS VERGARA Prakash ?/Age/Sex: 1955 - 68 - F Unit#: ??[id number] ? Location/Status: ??SPDIMAM/REG CLI ? Mnemonic/Ordering Site: ??DIGSC/SPMAM Ordering Physician: ??STORMY JAMES MD [facility] Screening Digital - 12/16/23 - Report Status:Signed EXAM: [facility] Screening Digital EXAM DATE AND TIME: 12/16/2023 3:12 PM HISTORY: ??Annual screening COMPARISON: ??12/09/2022, 12/07/2021, 11/13/2020, 11/09/2019 and 01/13/2019 TECHNIQUE: Bilateral digital breast tomosynthesis was performed in the CC and MLO projections. Computer aided detection with [employer] 7.2-H and [employer] 3D 3.1 was employed. TISSUE DENSITY: b. There are scattered areas of fibroglandular density. FINDINGS: No suspicious masses, grouped microcalcifications, or areas of architectural distortion are seen. The skin and vascularity are unremarkable. IMPRESSION: Stable mammographic appearance of the breasts. ??No evidence of malignancy is seen. A negative mammogram in the presence of a clinically suspicious palpable abnormality does not preclude the possibility of malignancy or alter the indications for biopsy. BI-RADS: ??Category 1: Negative RECOMMENDATION(S): 1: Routine screening mammogram BILATERAL in 1 year. Dictating Physician: ??MICKY ERVIN MD Electronically Signed by: ??MICKY ERVIN MD Dic Date/Time: ??12/16/23 1541 Sign date/Time: ??12/16/23 5694 Procedure Note Micyk Ervin MD - 12/23/2023 [facility] Diagnostic Imaging Department [address] [place] [address] Patient: IRIS VERGARA /Age/Sex: 1955 - 68 - F Unit#: [id number] Location/Status: [facility] CLI Mnemonic/Ordering Site: [facility] Ordering Physician: STORMY JAMES MD [facility] Screening Digital - 12/16/23 - Report Status:Signed EXAM: [facility] Screening Digital EXAM DATE AND TIME: 12/16/2023 3:12 PM HISTORY: Annual screening COMPARISON: 12/09/2022, 12/07/2021, 11/13/2020, 11/09/2019 and01/13/2019 TECHNIQUE: Bilateral digital breast tomosynthesis was performed in the CCand MLO projections. Computer aided detection with [employer] 7.2-H and[employer]avium 3D 3.1 was employed. TISSUE DENSITY: b. There are scattered areas of fibroglandular density. FINDINGS: No suspicious masses, grouped microcalcifications, or areas ofarchitectural distortion are seen. The skin and vascularity are unremarkable. IMPRESSION: Stable mammographic appearance of the breasts. No evidence of malignancyis seen. A negative mammogram in the presence of a clinically suspicious palpable abnormality does not preclude the possibility of malignancy or alter the indications for biopsy. BI-RADS: Category 1: Negative RECOMMENDATION(S): 1: Routine screening mammogram BILATERAL in 1 year. Dictating Physician: MICKY ERVIN MD Electronically Signed by: MICKY ERVIN MD Dic Date/Time: 12/16/23 1548 Sign date/Time: 12/16/23 1557 Stormy James MD IMG BI PROCEDURES Final Re sult * (ABNORMAL) Lipid panel (11/30/2021) LDL/HDL Ratio 3 0 - 4 Triglycerides 149 0 - 150 mg/dL Cholesterol 198 0 - 200 mg/dL HDL 61 >=40 mg/dL LDL Cholesterol 108(A) 0 - 100 mg/dL Blood Venous blood specimen / Unknown Historical Provider LAB BLOOD ORDERABLES Angelica l Result * Annual BMP Blood Test (08/18/2018) Pathologist [facility] Annual BMP Blood Test Abstracted Historical Provider HEALTH MAINTENANCE Final Result from Last 3 Months or Most Recently Relevant to Health Maintenance Insurance [facility] Care Teams Surgery Consultant Relationship Specialty Start Date End Date Isela Javed NP [address] [facility] [place] [address] PCP - General Internal Medicine 07/28/17
== END 2024-05-28 14:40 | disposition home or self-care (01) ==
LOC: HO.HPS 13:32
PROVIDERS: PCP Nurse Practitioner Gerontology; Visit Provider Hospitalist
DX: J05.0 Acute obstructive laryngitis [croup] (principal); D86.9 Sarcoidosis, unspecified; R91.8 Other nonspecific abnormal finding of lung field; R06.09 Other forms of dyspnea; G47.33 Obstructive sleep apnea (adult) (pediatric); J45.41 Moderate persistent asthma with (acute) exacerbation; R01.1 Cardiac murmur, unspecified; I51.7 Cardiomegaly
CPT/HCPCS: 99214

== ENCOUNTER 2024-05-28 13:32 | Outpatient (REF) | payer OTHER, SELFPAY ==
[2024-05-28 15:21] LABS: Influenza A PCR NEGATIVE (Negative); Influenza B PCR NEGATIVE (Negative); Resp Syncy Virus RNA Qual PCR NEGATIVE (Negative); SARS COV2 PCR INHOUSE NEGATIVE (Negative)
--- OUTSIDE RECORDS SUMMARY | 2024-05-28 15:57 | XMS_ITS | Clinical Summary ---
Author Organization Patient Business Ser [facility] Address [address] [place] [address] Care Team Providers Care Manager Pharmaceutical Name Role Phone Isela Javed NP Primary Care Provider [phone] Allergies Active Allergy Reactions Criticality Noted Date [...] of her most recent echocardiogram done in [facility]. Depends on image, we will further address [...] [address] [place] [address] Vidhi Simmons MA from Last 3 Months Immunizations Name Administration Dates Next Due Pneumococcal polysaccharide 23 valent (Pneumovax 23) 2yo and older 09/15/2012 Tdap Tetanus diptheria acell ular pertussis (Boostrix; Adacel) 7yo and older 07/25/2009 Surgical History Surgery Date Site/Laterality Comments TONSILLECTOMY PROCEDURE: HISTORICAL TONSILLECTOMY APPENDECTOMY PROCEDURE: UT APPENDECTOMY SECTION PROCEDURE: HISTORICAL DELIVERY HYSTERECTOMY PROCEDURE: HISTORICAL HYSTERECTOMY BLADDER SURGERY PROCEDURE: HISTORICAL BLADDER SURGERY OTHER SURGICAL HISTORY PROCEDURE: UT DILATION & CURETTAGE DX&/THER NONOBSTETRIC Medical History [...] Upcoming Encounters Date Type Department Care Team ([facility] st Contact Info) Description 06/08/2024 1:50 PM EDT Office Visit Gastroenterology - [address] [place] [address] Azul Vasquez [employer]AD[employer]ENDER [address] [facility] [address] [place] [address] Health Maintenance Due Date Last Done Comments [...] Impressions 12/30/2023 3:57 PM EST Osteopenia. ? [id number] -------- FINAL REPORT -------- Dictated By: Aparna Bauman Dictated Date: 12/30/2023 15:56 ET Assigned Physician: Aparna Bauman Reviewed and Electronically Signed By: Apanra Bauman Signed Date: 12/30/2023 15:57 ET Workstation ID: [id number] Transcribed By: Self Edit Transcribed Date: 12/30/2023 15:56 ET Narrative 12/30/2023 3:57 PM EST History: Low estrogen state due to menopause. Comparison: 11/13/20 Findings: Bone densitometry is performed utilizing dual energy x-ray absorptiometry (DXA) in the Lydia unit. The lumbar spine and proximal femora [...] utilizing dual energy x-ray absorptiometry(DXA) in the Lydia unit. The lumbar spine and proximal femora [...] Osteoporotic 8.0percent Hip 0.7 percent. IMPRESSION: Osteopenia. [id number] -------- FINAL REPORT -------- Dictated By: Aparna Bauman Dictated Date: 12/30/2023 15:56 ET Assigned Physician: Aparna Bauman Reviewed and Electronically Signed By: Aparna Bauman Signed Date: 12/30/2023 15:57 ET Workstation ID: [id number] Transcribed By: Self Edit Transcribed Date: 12/30/2023 15:56 ET Isela Javed NP IMG DXA PROCEDURES Final Result * NADIA SCREENING DIGITAL (12/16/2023 3:54 PM EDT) Anatomical Region Laterality Modality Mammography 12/16/2023 1:14 PM EDT Narrative 12/16/2023 3:54 PM EDT [facility] Diagnostic Imaging Department [address] [place] [address] Patient: ??IRIS VERGARA Prakash ?/Age/Sex: 1955 - 68 - F Unit#: ??[id number] ? Location/Status: ??SPDIMAM/REG CLI ? Mnemonic/Ordering Site: ??DIGSC/SPMAM Ordering Physician: ??STORMY JAMES MD [facility] Screening Digital - 12/16/23 - Report Status:Signed EXAM: [facility] Screening Digital EXAM DATE AND TIME: 12/16/2023 3:12 PM HISTORY: ??Annual screening COMPARISON: ??12/09/2022, 12/07/2021, 11/13/2020, 11/09/2019 and 01/13/2019 TECHNIQUE: Bilateral digital breast tomosynthesis was performed in the CC and MLO projections. Computer aided detection with [employer] 7.2-H and [employer] 3D 3.1 was employed. TISSUE DENSITY: b. [...] by: ??MICKY ERVIN MD Dic Date/Time: ??12/16/23 154 Sign date/Time: ??12/16/23 5956 Procedure Note Micky Ervin MD - 12/23/2023 [facility] Diagnostic Imaging Department [address] [place] [address] Patient: IRIS VERGARA /Age/Sex: 1955 - 68 - F Unit#: [id number] Location/Status: [facility] CLI Mnemonic/Ordering Site: [facility] Ordering Physician: STORMY JAMES MD [facility] Screening Digital - 12/16/23 - Report Status:Signed EXAM: [facility] Screening Digital EXAM DATE AND TIME: 12/16/2023 3:12 PM HISTORY: Annual screening COMPARISON: 12/09/2022, 12/07/2021, 11/13/2020, 11/09/2019 and01/13/2019 TECHNIQUE: Bilateral digital breast tomosynthesis was performed in the CCand MLO projections. Computer aided detection with [employer] 7.2-H and[employer] 3D 3.1 was employed. TISSUE DENSITY: b. [...] Dic Date/Time: 12/16/23 1548 Sign date/Time: 12/16/23 1552 Stormy James MD IMG BI PROCEDURES Final [...] * Annual BMP Blood Test (08/18/2018) Pathologist [facility] Annual BMP Blood Test Abstracted Historical Provider HEALTH MAINTENANCE Final Result from Last 3 Months or Most Recently Relevant to Health Maintenance Insurance [facility] Care Teams Manager Pharmaceutical Relationship Specialty Start Date End Date Isela Javed NP [address] [facility] [place] [address] PCP - General Internal Medicine 07/28/17
== END 2024-05-28 13:33 | disposition home or self-care (01) ==
LOC: HO.LNP 13:32
PROVIDERS: PCP Nurse Practitioner Gerontology; Visit Provider Hospitalist
DX: J05.0 Acute obstructive laryngitis [croup] (principal)
CPT/HCPCS: 0241U; 96372; J2919

== ENCOUNTER 2024-08-23 11:01 | Outpatient (AMB) | payer MEDICARE, SELFPAY ==
[2024-08-23 11:13] VITALS: BP 92/56; PULSE 67; O2SAT 95; BMI 31.1
--- NOTE | 2024-08-23 11:13 | A.OFFVIS_ITS ---
Vital Signs 08/23/24 11:13 Height 5 ft 6 in Weight 192 lb 14.472 oz BMI 31.1 BP 92/56 L Blood Pressure Location Lt brachial Position Sitting Pulse 67 Pulse Source Pulse Oximeter Pulse Oximetry (%) 95 Oxygen Delivery Method Room Air Intake Visit Reasons: cough Sports Agent Required: No Accompanied by: Self / Same As Patient Allergies demerol Allergy (Unknown, Uncoded 05/28/24 13:45) hives duraprep Allergy (Unknown, Uncoded 05/28/24 13:45) /welts HPI Comments Details: The patient is a 69 year woman with a known history of moderate persistent asthma, sarcoidosis and pulmonary nodules. The patient also has allergies and currently seen an professional programmer analyst. She was offered allergy shots but she does not want to start them at this time. She continues uses Symbicort 2 puffs twice a day. She also uses very her rescue inhaler. Unfortunately she has tried albuterol as a short-acting beta agonist cell resulting significant palpitations and tremors. For that reason we have switched her over to Xopenex HFA and also the nebulized solution that she has had to tolerate much better. She doesn't have any adverse effects when she uses Xopenex as opposed to the side effects that she gets some abuse or. Therefore we will resend her Xopenex to the pharmacy. The patient is not able to use albuterol. We did review her CT scan of the chest last done back in [address] [facility]. She does have multiple pulmonary nodules largest measuring 8 mm. She hasn't had imaging now in more than 2 years. The patient needs to have a CT scan to reassess nodular densities. We will do that at [facility]. In addition to that we did review her blood work demonstrating elevated Paul level that may be a sign of active sarcoid. So therefore will recheck the level at this time. Otherwise the patient is without any other complaints 03/13/2022 the patient is here for a pulmonary follow-up visit. The patient has been getting worse in the last week. She is developing a croupy cough in along with shortness of breath and chest tightness. The patient did follow-up with cardiology her and had a full cardiac workup including cardiac catheterization. She was told that everything is fine from a cardiac workup and that most of her symptoms are pulmonary. In the meantime the patient developed this respiratory illness. Will go ahead and treated with antibiotics for what appears to be a bout of tracheobronchitis and will provide also with cough medication. If the patient is not better she will provide us with a sputum culture in order for further analyze the microbiology. I do believe that the patient will require repeat CT scan. Her last CT scan was bout two years ago demonstrating pulmonary nodules and along with airspace disease. The patient has a history sarcoidosis. Ultimately I do believe that to further address her cough appt bronchoscopy may be warranted to further address for endobronchial sarcoid also to assess her trachea for any evidence of tracheomalacia or any other etiologies for cough. 05/22/2022 the patient is here for pulmonary follow-up visit. She still complains of a cough. At this point the cough is nonproductive in nature. Although she does feel like she does have some chest congestion with difficult to expectorate. The coughing spells can be sporadic and be uncomfortable. Moderate severity. Her inhalers do not help. Her nebulizers more effective. Will try to minimize the use of prednisone. The patient does have chronic bronchitis with frequent exacerbations needing prednisone. Therefore she is a good candidate for Daliresp. Will go ahead and start a small dose of Daliresp and she is going to be mindful of her GI potential side effects. Hopeful that she can tolerated we can increase it to the therapeutic dose of 500 mcg. In the meantime okay and also provide her with hypertonic saline and an Acapella valve in order for her to be able to work on chest physical therapy. Again, if the patient continues to be symptomatic once the patient is able we can have her undergo bronchoscopy to further adjust the airways. The patient may have a component of sinus congestion. She should be using her nasal sprays and also consider nasal rinsing. The patient does have significant daytime drowsiness after having COVID. Likely chronic fatigue syndrome the patient unfortunately even after a full night's sleep still feels tired. Denies any symptoms or signs of obstructive sleep apnea. If the patient continues to be symptomatic with daytime drowsiness upon return and upon improvement of her chest physical therapy them with the consider using stimulants to try to improve her daytime wakefulness. 08/28/2022 the patient is here for a pulmonary follow-up visit. The patient still struggling with her breathing. Complains of significant dyspnea on exertion also daytime drowsiness. Her Warwick score is elevated 02/16. She sleeps a lot during the daytime. The patient has not had any recent sleep studies. At this point based on her ongoing symptoms will go ahead and abscess. The patient also tried Daliresp to see if this would help with her breathing and exacerbations, but, her symptoms did not get any better and she had significant GI adverse effects to the point that she has to stop it immediately. The patient did not tolerate the therapy. The patient did have COVID in therefore long COVID is indeed in differential Peter for sleep study is negative we can consider stimulant therapy to help with her ongoing symptoms. The patient also has underlying sarcoidosis history and pulmonary nodules. Will plan to repeat the CT scan of the chest to assess her pulmonary nodules in view of her ongoing symptoms. The patient should also undergo pulmonary function studies and consider pulmonary rehabilitation. 11/04/2022 the patient is here for pulmonary follow-up visit. The patient has been sick now for about 4 days. She was exposed to sick contact. Now she has occlude like cough. She has a hard time sleeping at nighttime. The cough is pretty significant. Also had some subjective fevers and chills. She tested negative for COVID. The patient also has had some increased wheezing and chest tightness. She has been using her rescue medication with good effect. Here in the office she does look ill appearing. The patient did have a swab done for RSV flowing COVID-19. Hopefully the results are negative patient will start also some prednisone she does have diabetes will do a low dose. Also started on some antibiotics and also cough suppressant. She we did also review her CT scan of the chest that she had back in August demonstrating hilar lymphadenopathy and pulmonary nodules like this is consistent with her sarcoidosis. Still because of pulmonary nodules she will need a repeat CT scan in a year's time. In addition to that she had pulmonary function studies before she was sick demonstrating normal lung capacity. 12/12/2022 the patient is here for a pulmonary follow-up visit. The patient is feeling little bit better. He still complains of a cough. Appears to be an upper airway cough syndrome. Likely from postnasal drip. She does have some sinus congestion. She just completed 2 courses of prednisone antibiotics for the ongoing lower respiratory infectious process. Seems to be doing better this time overall. We did review again her CT scan from [facility] from the summer of 2022 demonstrating stable changes. Patient also have a small hiatal hernia which may be contributing to the cough. Did talk about potentially consider bronchoscopy if the patient is no better. She is going to continue therapies for her nasal congestion and cough will continue with the current respiratory therapy. If she does not seen improvement was it worsens she will call will schedule bronchoscopy. Also on exam she does have a murmur. The patient has had a cardiac workup including cardiac cath and echo stress but I do not see an echocardiogram to assess valvular disease. Therefore will request 1 at this time. 05/08/2023 the patient for pulmonary follow-up visit. She has feeling a lot better. Over the winter time she did get a viral syndrome likely RSV. Resulting in significant asthma flare-up. The patient initially was present medications without any significant improvement and then called again. We sent her higher dose of prednisone although she does have diabetes. She did tolerate the 60 mg of prednisone with a sugar increasing to about 250. Now the patient is back to baseline. She does have some dyspnea on exertion [id number] severity. We had done an echocardiogram back in December. I did competent to my note. Appears that she does have an asymmetrical left ventricular septal hypertrophy. It was described as severe. In addition to that she has not ectatic aorta measuring 4 cm in size. Patient does have some diastolic dysfunction because of the hypertrophy most likely. She also has significant murmur exam although no significant valvular disease appreciated on the echocardiogram. She had been seen by Cardiology in the past, pt evaluate Cardiology. Will send a referral again in order for her to be continued to be evaluated specially with significant cardiac hypertrophy. The patient also had a CT scan at [facility] back in August 2022 demonstrating multiple pulmonary nodules largest 1 measuring 7 mm in size. Will plan to repeat the CT scan again in August 2023 and she will follow-up after that. The patient also has significant lymphadenopathy. 10/13/2023 the patient is here for pulmonary follow-up visit. The patient overall is feeling better from a respiratory status. She has been using her i nhalers. She is no longer on prednisone which is reassuring. The patient still complains of dyspnea on exertion. Zbzm-io-hspbguxs severity. She did follow-up with Cardiology. Her beta-alejandra was increased. I did caution her that the nonselective beta-blockers can resulting worsening bronchospasms. She is on propranolol. She did have an echocardiogram demonstrated moderate hypertrophic changes of the left ventricle. She will follow-up with the business excellence manager. In addition to that the patient did have a CT scan of the chest. We did personally review. Pulmonary nodules appear to be stable which is reassuring. These are consistent with history sarcoidosis. In addition to that she does have some calcifications of the coronary arteries which are likely stable plaque. Apparently the patient did have a stress test couple years ago. She will continue to follow-up with cardiology. In addition to that it was mentioned she has fatty liver. She also follow-up with her primary care doctor regarding that. I did explain to her that with the amount of prednisone she was using the may have resulted in some metabolic derangements. The patient will continue therapy. No further CT scans at this time. The patient follow-up in 6-8 months. If she develops any issues prior to that she will call for an earlier assessment. She still has daytime drowsiness. Her Warwick score is elevated 24. She did have a home sleep study but did not record. She was supposed to call to reschedule but she has not done as of yet. She will consider at this time. She is reluctant because she does not like the idea of sleeping with CPAP. 05/28/2024 the patient is here for sick visit. Apparently her grandson was sick. He had croup. Ultimately she developed a cough for the last week. She also developed a significant chest tightness and wheezing. Moderate severity. She has had a hard time sleeping. She could not tolerate his symptoms any longer descend 2:. We did swab her for flu RSV and COVID which were all negative. The patient does have a barky cough which is pretty significant very active. She also has wheezing on examination. The patient does have a history of diabetes. We did give her Solu-Medrol 125 mg IM x1. She knows to check her sugars and she will follow-up with her primary care doctor who also helps her with her diabetes. After that the patient can start prednisone taper. She will start antibiotics and cough medication. If she is no better she will call back. She will continue with current respiratory therapy. She does have nebulizer home and has been using Xopenex. Has not been working as good so send her DuoNeb. Although it may cause her to have more tremulousness. No need for an x-ray right now. The patient has a follow-up in June which she should keep for now. 08/23/2024 the patient is here for a pulmonary follow-up visit. Since we last spoke the patient is doing significantly better. She did require lot of medications but now she is back to her baseline. She is using her inhalers as prescribed. She has not requiring any getv-vxv-yhxedjk a prescription medications at this time. We did look at her last CT scan was back in August 2023 pulmonary nodules were stable. She recently is grieving the loss of her and has been very affected by that. So therefore will hold off on any imaging studies at this time and will plan to follow-up with the springtime with a CT scan of the chest. She does have a nebulizer that she can use as needed. If she any issues arise she will call for an earlier assessment. Right now I do not see any evidence of any active sarcoidosis which is reassuring. 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 BERTHA (obstructive sleep apnea) Asthma-COPD overlap syndrome Bronchitis Dyspnea Pulmonary nodules Sarcoidosis Asthma Social History Household Members: Spouse Patient Tobacco Use Status: Never used Tobacco Review of Systems Const Denies chills, Reports fatigue, Denies malaise and Denies night sweats ENT Denies change in voice, Denies lip swelling, Denies mouth pain, Reports nasal congestion, Reports nasal discharge and Denies tongue swelling Card Denies chest pain and Denies dyspnea on exertion Resp Denies change in phlegm color, Reports cough, Denies hemoptysis, Denies pain on inspiration, Denies pain with cough and Denies dyspnea on exertion GI Denies abdominal pain Musc Denies no additional complaints Neuro Denies Neuro-related abnormal movements Psych Denies no additional complaints Endo Reports fatigue Manan/Lymph Denies easy bleeding and Denies lymphadenopathy Aller/Immun Denies lip swelling and Denies tongue swelling Physical Exam Vital Signs: Last Vital Signs Pulse 67 08/23/24 11:13 BP 92/56 L 08/23/24 11:13 Pulse Ox 95 08/23/24 11:13 Oxygen Delivery Method Room Air 06/30/25 11:13 BMI result Body Mass Index 31.1 Const General: alert HEENT General nose exam: Abnormal external nose present and Nasal discharge present Eyes Pupils: Equal, round and reactive pupils present Neck Neck: Yes normal visual inspection, Yes full ROM and Yes no lymphadenopathy Chest Chest palpation & inspection: normal inspection of the chest Resp Effort & Inspection: normal respiratory effort Auscultation: clear to auscultation bilaterally, no crackles, no rales, no rhonchi and no wheezes Cardio Rate: regular rate Rhythm: regular rhythm Heart sounds: S1 normal heart sound present and S2 normal heart sound present GI Palpation (GI): Soft to palpation and nontender Auscultation: normal bowel sounds General: Yes no CVA tenderness Back/Spine/Pelvis Back: no CVA tenderness Skin General skin exam: rashes and/or lesions noted Neuro Cranial nerves: Yes Equal, round and reactive pupils present Assessment & Plan Assessment & Plan (1) Sarcoidosis: Comment: stable Code(s): D86.9 - Sarcoidosis, unspecified Category: Medical (2) Pulmonary nodules: Comment: numerous pulmonary nodules with on going symptoms. Code(s): R91.8 - Other nonspecific abnormal finding of lung field Category: Medical (3) Dyspnea: Code(s): R06.00 - Dyspnea, unspecified Category: Medical Qualifiers: Dyspnea type: dyspnea on exertion Qualified Code(s): R06.09 - Other forms of dyspnea (4) BERTHA (obstructive sleep apnea): Code(s): G47.33 - Obstructive sleep apnea (adult) (pediatric) Category: Medical (5) Asthma: Code(s): J45.909 - Unspecified asthma, uncomplicated Category: Medical Qualifiers: Asthma complication type: with acute exacerbation Asthma persistence: persistent Asthma severity: moderate Qualified Code(s): J45.41 - Moderate persistent asthma with (acute) exacerbation (6) Murmur: Code(s): R01.1 - Cardiac murmur, unspecified Category: Medical (7) Cardiac hypertrophy: Code(s): I51.7 - Cardiomegaly Category: Medical Plan continue symbicort continue short-acting beta agonist as needed Duoneb as needed continue singulair fluticasone nasal spray neti bottle PM (Distilled water only) Benzonate as needed Cardiology eval for the abnormal ECHO CT chest Spring 2024 follow-up in June 2024 Orders: Orders CT chest wo IV con 07/04/25 R91.8 - Other nonspecific abnormal finding of lung field Coding Level of Care Code Est Pt Level 4 (62229) Complex EM visit Add On G2211 Diagnoses Sarcoidosis D86.9 Pulmonary nodules R91.8 Dyspnea on exertion R06.09 Dyspnea type: dyspnea on exertion BERTHA (obstructive sleep apnea) G47.33 Moderate persistent asthma with acute exacerbation J45.41 Asthma complication type: with acute exacerbation Asthma persistence: persistent Asthma severity: moderate Murmur R01.1 Cardiac hypertrophy I51.7 Time Spent (min) 16
--- OUTSIDE RECORDS SUMMARY | 2024-08-23 11:55 | XMS_ITS | Encounter Summary ---
Author Organization [facility] Address [address] [place] [address] Care Team Providers Care Tafe Registrar Name Role Phone Isela Javed NP Primary Care Provider Unavailabl e Chelsi Healy MD Unavailable Albina Cabrera PA-C Unavailable Unavailab le Encounter Details Date Type Department Care Team Description 02/21/2023 Orders Only Cardio PVC POC [address] [place] [address] Default, Provider Social History Tobacco Use Types Packs/Day Years Used Date Smoking Tobacco: Never Smokeless Tobacco: Never Alcohol Use Standard Drinks/Week Comments Not Currently 0 (1 standard drink = 0.6 oz pur e alcohol) Sex Assigned at Date Recorded Not on file Job Start Date Occupation Industry Not on file Not on file Not on file documented as of this encounter Plan of Treatment Not on file documented as of this encounter Procedures Procedure Name Priority Date/Time Associated Diagnosis Comments OUTSIDE LAB Routine 11/26/2022 documented in this encounter Results * OUTSIDE LAB (11/26/2022) Provider Default LAB documented in this encounter Visit Diagnoses Not on filedocumented in this encounter Care Teams Tafe Registrar Relationship Specialty Start Date End Date Isela Javed NP PCP - General Internal Medicine 07/28/17 Chelsi Healy MD Specialist Cardiology 10/26/21 Albina Cabrera PA-C Cardiology 02/27/22 documented as of this encounter
== END 2024-08-23 11:41 | disposition home or self-care (01) ==
LOC: HO.HPS 11:02
PROVIDERS: PCP Nurse Practitioner Gerontology; Visit Provider Hospitalist
DX: D86.9 Sarcoidosis, unspecified (principal); R91.8 Other nonspecific abnormal finding of lung field; R06.09 Other forms of dyspnea; G47.33 Obstructive sleep apnea (adult) (pediatric); J45.41 Moderate persistent asthma with (acute) exacerbation; R01.1 Cardiac murmur, unspecified; I51.7 Cardiomegaly
CPT/HCPCS: 99214; G2211

== ENCOUNTER → 2024-08-23 11:01 | Outpatient (BNVA) | payer MEDICARE, SELFPAY | PROVIDERS: PCP Nurse Practitioner Gerontology; Visit Provider Hospitalist | DX: J45.41 Moderate persistent asthma with (acute) exacerbation (principal); G47.33 Obstructive sleep apnea (adult) (pediatric); I51.7 Cardiomegaly; R01.1 Cardiac murmur, unspecified; J45.51 Severe persistent asthma with (acute) exacerbation; R06.09 Other forms of dyspnea; R91.8 Other nonspecific abnormal finding of lung field | CPT/HCPCS: 99212 ==